=== PATIENT | female | born 1990 | race Caucasian/White ===

== ENCOUNTER 2019-05-15 12:45 | Emergency (ER) | payer SELFPAY ==
--- OUTSIDE RECORDS SUMMARY | 2019-05-15 12:48 | XMS REPORT ---
:1990 Author Organization [facility] Address [address] [place] [address] [address] [place] [address] Care Team Providers Name Role Phone Unavailable Unavailable Unavailable Problems This patient has no known problems. Allergies, Adverse Reactions, Alerts This patient has no known allergies or adverse reactions. Medications This patient has no known medications.
[2019-05-15] MEDS ORDERED: ACETAMINOPHEN 500 MG TAB ONE (14:23)
[2019-05-15] MEDS ORDERED: METOCLOPRAMIDE 10 MG/2mL INJ ONE (14:23)
[2019-05-15] MEDS ORDERED: DIPHENHYDRAMINE 50 MG/ML VIAL ONE (14:23)
[2019-05-15] MEDS ORDERED: NA CHLORIDE 0.9% 1,000 ML ONE (14:23)
[2019-05-15 14:40] LABS: Absolute Lymphocytes (CBC) 0.7 K/uL (0.7-4.9); Basophils % 0.2 % (0-1.3); Hematocrit 41.8 % (36.0-45.0); Lymphocytes % 9.2 % (15.3-44.8); MPV 8.1 fL (7.6-11.3); RBC Red Blood Cell Count 4.76 M/uL (3.86-4.86)
--- NOTE | 2019-05-15 15:01 | RAD REPORT ---
EXAM DESCRIPTION: CT - Head Brain Wo Cont - 05/15/2019 2:41 pm CLINICAL HISTORY: Headache COMPARISON: None. TECHNIQUE: Computed axial tomography of the head was obtained. IV contrast was not requested. All CT scans are performed using dose optimization technique as appropriate and may include automated exposure control or mA/KV adjustment according to patient size. FINDINGS: An intracranial bleed is not seen . The ventricles are normal in caliber. No extra-axial fluid collection is noted. Fluid within the sinuses/ mastoids is not seen. IMPRESSION: No acute intracranial abnormality is seen. If patient's symptoms persist MRI of the bra in would be recommended.
[2019-05-15 15:02] LABS: Blood Morphology Comment NOT SEEN (NOT SEEN); Platelet Estimate ADEQ; Urine White Blood Cell Casts OK
[2019-05-15 15:13] LABS: ALT/SGPT 21 U/L (12-78); AST/SGOT 16 U/L (15-37); Albumin 4.2 g/dL (3.4-5.0); Alkaline Phosphatase 46 U/L (45-117); BUN Blood Urea Nitrogen 14 mg/dL (7-18); Bicarbonate 25 mmol/L (21-32); Bilirubin Total 0.4 mg/dL (0.2-1.0); Glucose Level 104 mg/dL (74-106); Protein, Total 7.7 g/dL (6.4-8.2); Sodium Level 141 mmol/L (136-145)
--- NOTE | 2019-05-15 15:55 | ER ---
Nurse's Notes [facility] Name: Leda Le Age: 28 yrs Sex: Female : 1990 Arrival Date: 05/15/2019 Time: 12:46 Bed 24 Private MD: None, None Diagnosis: Headache;Urinary tract infection, site not specified Presentation: 05/15 13:34 Presenting complaint: Patient states: Frontal headache that began this morning, also ph reports AN/V and diffuse abdominal pain, hx of migraines. Transition of care: patient was not received from another setting of care. Onset of symptoms was May 15, 2019. Risk Assessment: Do you want to hurt yourself or someone else? Patient reports no desire to harm self or others. Initial Sepsis Screen: Does the patient meet any 2 criteria? No. Patient's initial sepsis screen is negative. Does the patient have a suspected source of infection? No. Patient's initial sepsis screen is negative. 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 - Social history:: Smoking status: Patient uses tobacco products, denies chronic smoking, but will smoke occasionally. - Ebola Screening: : No symptoms or risks identified at this time. Screenin:32 Abuse screen: Denies threats or abuse. Nutritional screening: No deficits noted. sr5 Tuberculosis screening: No symptoms or risk factors identified. Fall Risk No fall in past 12 months (0 pts). No secondary diagnosis (0 pts). IV access (20 points). Ambulatory Aid- None/Bed Rest/Nurse Assist (0 pts). Gait- Normal/Bed Rest/Wheelchair (0 pts) Mental Status- Oriented to own ability (0 pts). Total Machado Fall Scale indicates No Risk (0-24 pts). Assessment: 16:18 Reassessment: Upon discharge pt continues to be AA\\T\\Ox4, equal unlabored resp, skin sr5 warm/dry/nc, IV site dc'd intact, bandage applied. Continues improved frontal headache, 6/10 but denies need for further pain medication. Steady gait out of ER . Vital Signs: 13:35 BP 123 / 90; Pulse 91; Resp 18; Temp 99.7(O); Pulse Ox 97% on R/A; Weight 56.25 kg; ph Height 5 ft. 3 in. (160.02 cm); 15:32 BP 118 / 73; Pulse 88; Resp 14; Temp 99.1(O); Pulse Ox 99% on R/A; Pain 6/10; sr5 16:10 BP 114 / 80; Pulse 84; Resp 16; Temp 99.1; Pulse Ox 100% on R/A; Pain 6/10; sr5 13:35 Body Mass Index 21.97 (56.25 kg, 160.02 cm) ph 15:32 Reports pain "better", continues to have frontal headache, sensitive to light sr5 ED Course: 12:46 Patient arrived in ED. mr 12:47 None, None is Private Physician. mr 13:35 Triage completed. ph 13:36 Arm band placed on Patient placed in an exam room. ph 13:43 Jonathan Boston PA is PHCP. jmm 13:49 Kashmir Bronson, RN is Primary Nurse. sr5 14:34 Initial lab(s) drawn, by me, sent to lab. Flu and/or RSV swab sent to lab. Strep swab lt1 sent to lab. Inserted saline lock: 22 gauge in right antecubital area, using aseptic technique. 14:35 Strep Sent. lt1 14:35 Flu Sent. lt1 14:41 CT completed. Patient tolerated procedure well. Patient moved back from CT. mw3 14:41 CT Head Brain wo Cont In Process Unspecified. EDMS 15:32 Patient has correct armband on for positive identification. Fall risk band placed. sr5 Placed in gown. Bed in low position. Call light in reach. Side rails up X 1. Pulse ox on. NIBP on. Warm blanket given. 15:56 Jose Brandt MD is Attending Physician. jmm 16:10 No provider procedures requiring assistance completed. IV discontinued, intact, sr5 bleeding controlled, No redness/swelling at site. Administered Medications: 14:30 Drug: Reglan 10 mg Route: IVP; Site: right antecubital; sr5 16:23 Follow up: Response: Pain is decreased sr5 14:30 Drug: diphenhydrAMINE 12.5 mg Route: IVP; Site: right antecubital; sr5 16:22 Follow up: Response: Pain is decreased sr5 14:31 Drug: NS 0.9% 1000 ml Route: IV; Rate: 1 bolus; Site: right antecubital; sr5 16:23 Follow up: IV Status: Completed infusion; IV Intake: 1000ml sr5 14:31 Drug: Tylenol 1000 mg Route: PO; sr5 16:23 Follow up: Response: Pain is decreased sr5 Intake: 16:23 IV: 1000ml; Total: 1000ml. sr5 Outcome: 15:55 Discharge ordered by . anai 16:10 Discharged to home ambulatory. sr5 16:10 Condition: good 16:10 Discharge instructions given to patient, Instructed on discharge instructions, follow up and referral plans. medication usage, Demonstrated understanding of instructions, follow-up care, medications, Prescriptions given X 1. 16:18 Patient left the ED. sr5 Signatures: Dispatcher [employer] EDMS Jonathan Boston PA PA jmm Rivera, Maureen mr Yareli Concepcion RN RN Kashmir Molina RN RN sr5 Rosita Kerr 3 Cayla Sharp [facility]
--- NOTE | 2019-05-15 15:56 | EDPHYS ---
Physician Documentation [facility] Name: Leda Le Age: 28 yrs Sex: Female : 1990 Arrival Date: 05/15/2019 Time: 12:46 Bed 24 Private MD: None, None ED Physician Jose Brandt HPI: 05/15 14:14 This 28 yrs old Female presents to ER via Ambulatory with complaints of jmm Headache, Vomiting. 14:14 The patient complains of pain to the forehead. Onset: The symptoms/episode jmm began/occurred gradually, 8 hour(s) ago. Associated signs and symptoms: Pertinent positives: vomiting, headache. This is a 28 year old female with a history of migraines that presents to the ED with complaints of headache, vomiting which developed this morning. Patient also complains of fever, chills and sore throat. . 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 - Social history:: Smoking status: Patient uses tobacco products, denies chronic smoking, but will smoke occasionally. - Ebola Screening: : No symptoms or risks identified at this time. ROS: 14:14 Cardiovascular: Negative for chest pain, palpitations, and edema. jmm 14:14 Respiratory: Negative for shortness of breath, cough, wheezing, and pleuritic chest pain. 14:14 Constitutional: Positive for body aches, fever. 14:14 ENT: Positive for sore throat. 14:14 Respiratory: 14:14 Abdomen/GI: Positive for vomiting. 14:14 All other systems are negative. Exam: 14:14 Constitutional: This is a well developed, well nourished patient who is awake, alert, jmm and in no acute distress. Head/Face: atraumatic. Eyes: EOMI, no conjunctival erythema appreciated ENT: Moist Mucus Membranes 14:14 Neck: Trachea midline, Supple Chest/axilla: Normal chest wall appearance and motion. Cardiovascular: Regular rate and rhythm. No edema appreciated Respiratory: Normal respirations, no respiratory distress appreciated 14:14 ENT: Posterior pharynx: erythema, that is mild. 14:14 Abdomen/GI: Inspection: abdomen appears normal, Bowel sounds: normal, Palpation: abdomen is soft and non-tender, in all quadrants. 14:14 Back: ROM is normal. 14:14 Musculoskeletal/extremity: ROM: intact in all extremities. 14:14 Skin: Appearance: Color: normal in color. 14:14 Neuro: Orientation: is normal, Mentation: is normal, Memory: is normal. 14:14 Psych: Behavior/mood is pleasant, cooperative. Vital Signs: 13:35 BP 123 / 90; Pulse 91; Resp 18; Temp 99.7(O); Pulse Ox 97% on R/A; Weight 56.25 kg; ph Height 5 ft. 3 in. (160.02 cm); 15:32 BP 118 / 73; Pulse 88; Resp 14; Temp 99.1(O); Pulse Ox 99% on R/A; Pain 6/10; sr5 16:10 BP 114 / 80; Pulse 84; Resp 16; Temp 99.1; Pulse Ox 100% on R/A; Pain 6/10; sr5 13:35 Body Mass Index 21.97 (56.25 kg, 160.02 cm) ph 15:32 Reports pain "better", continues to have frontal headache, sensitive to light sr5 MDM: 14:10 Patient medically screened. [facility] 15:52 Data reviewed: vital signs, nurses notes. Counseling: I had a detailed discussion with [facility] the patient and/or guardian regarding: the historical points, exam findings, and any diagnostic results supporting the discharge/admit diagnosis, lab results, radiology results, the need for outpatient follow up, to return to the emergency department if symptoms worsen or persist or if there are any questions or concerns that arise at home. ED course: Pain relieved in the ED. Patient's neck is supple. I do not suspect meningitis. patient is advised to follow up with pcp and otherwise given strict return precautions. patient understood and agrees with the plan of care. . 05/15 14:10 Order name: Flu; Complete Time: 15:05 [facility] 05/15 14:10 Order name: Strep; Complete Time: 14:49 [facility] 05/15 14:10 Order name: CBC with Diff; Complete Time: 15:05 [facility] 05/15 14:10 Order name: CMP; Complete Time: 15:15 [facility] 05/15 14:42 Order name: CBC Smear Scan; Complete Time: 15:05 [facility] 05/15 14:49 Order name: Throat Culture [facility] 05/15 14:12 Order name: CT Head Brain wo Cont; Complete Time: 15:05 [facility] 05/15 15:42 Order name: Urine Culture [facility] 05/15 15:50 Order name: Urine Dipstick--Ancillary (enter results) 05/15 15:50 Order name: Urine --Ancillary (enter results) 05/15 14:10 Order name: Saline Lock; Complete Time: 14:19 [facility] 05/15 15:16 Order name: Urine Dipstick-Ancillary (obtain specimen); Complete Time: 15:29 [facility] Administered Medications: 14:30 Drug: Reglan 10 mg Route: IVP; Site: right antecubital; sr5 16:23 Follow up: Response: Pain is decreased sr5 14:30 Drug: diphenhydrAMINE 12.5 mg Route: IVP; Site: right antecubital; sr5 16:22 Follow up: Response: Pain is decreased sr5 14:31 Drug: NS 0.9% 1000 ml Route: IV; Rate: 1 bolus; Site: right antecubital; sr5 16:23 Follow up: IV Status: Completed infusion; IV Intake: 1000ml sr5 14:31 Drug: Tylenol 1000 mg Route: PO; sr5 16:23 Follow up: Response: Pain is decreased sr5 Disposition: 05/16 07:21 Co-signature as Attending Physician, Jose Brandt MD I agree with the assessment and kdr plan of care. Disposition: 05/15/19 15:55 Discharged to Home. Impression: Headache, Urinary tract infection, site not specified. - Condition is Stable. - Discharge Instructions: General Headache Without Cause, Urinary Tract Infection, Adult. - Prescriptions for Cephalexin 250 mg Oral Capsule - take 1 capsule by ORAL route every 12 hours for 10 days; 20 capsule. - Medication Reconciliation Form, Thank You Letter, Antibiotic Education, Prescription Opioid Use form. - Follow up: Private Physician; When: 2 - 3 days; Reason: Recheck today's complaints, Continuance of care, Re-evaluation by your physician. Signatures: Dispatcher [employer] Joes Ogden MD MD kdr Mickail, Joel, PA PA jmm Hall, Patricia RN RN Kashmir Bronson RN RN sr5 Corrections: (The following items were deleted from the chart) 05/15 16:18 15:55 05/15/2019 15:55 Discharged to Home. Impression: Headache; Urinary tract sr5 infection, site not specified. Condition is Stable. Forms are Medication Reconciliation Form, Thank You Letter, Antibiotic Education, Prescription Opioid Use. Follow up: Private Physician; When: 2 - 3 days; Reason: Recheck today's complaints, Continuance of care, Re-evaluation by your physician. anai
[2019-05-15 17:49] LABS: Urine Blood 2+ (NEG); Urine Glucose NEGATIVE (NEG); Urine Protein 2+ (NEG); Urine Specific Gravity 1.015 (1.005-1.030)
[2019-05-15 18:43] VITALS: BP 118/73; TEMP 99.1; O2SAT 99
== END 2019-05-15 16:18 | disposition home or self-care (01) ==
LOC: ER 12:45
DX: N39.0 Urinary tract infection, site not specified (principal); Z72.0 Tobacco use
CPT/HCPCS: 36415; 70450; 80053; 81003; 81025; 85025; 87070; 87077; 87081; 87086; 87088; 87186; 87804; 96361; 96374; 96375; 99284; J1200; J2765; J7030

== ENCOUNTER 2024-09-12 22:24 | Emergency (ER) | payer BC, OTHER ==
--- OUTSIDE RECORDS SUMMARY | 2024-09-12 22:30 | XMS REPORT | Continuity of Care Document ---
Author Name Unknown Address [address] [facility] [place] [address] Organization [facility] [place] Address [address] [facility] [place] [address] Care Team Providers Care Network Security Officer Name Role Phone SUPRIYA MALDONADO Primary Care Physician UnaDONNA Tello Attending Clinician Unavailable DONNA IRVIN Attending Clinician Unavailable SANFORD PRETTY Attending Clinician Unavailable Lab, Ang - Db Attending Clinician Unavailable Lucita Cortez MD Attending Clinician + [phone] LUCITA CORTEZ Attending Clinician LUCITA Johnson Attending Clinician ARIEL Lim Attending Clinician Unavailable RICARDO HAMMER Attending Clinician Unavailmart levine Nurse, [facility] Attending Clinician Unavailable Jeevan Anderson MD Attending Clinician [phone] JEEVAN ANDERSON Attending Clinician Unavailable Ricardo Hammer MD Attending Clinician + [phone] Leonardo Alvarado MD Attending Clinician [phone] Sahara Nickerson MD Attending Clinicia n [address] [place] [address] Attending Clinician UnavailTammy Ley MD Attending Clinician [phone] STEWART CARROLL Attending Clinician Unavailable Deya Peterson Attending Clinician UnavailStewart Carter MD Attending Clinician [phone], [facility] Attending Clinician Unavailable Tara Ricardo CNM Attending Clinician [phone] Pob, [facility] Main Attending Clinician Unavailmariana gibbs Doctor Unassigned, [place] Attending Clinician U navailable ROJELIO DENNIS Attending Clinician Unavailable Rojelio Dennis MD Attending Clinician [phone] MARIO LOMAX Attending Clinician Unavailable Mario Quiroz Attending Clinician [phone] Lab, Ang - Db Attending Clinician Unavailable JUVE OROZCO Attending Clinician Unavail able Provider, ArturoRmchp Temp Attending Clinician Susana vailable TARA RICARDO Attending Clinician UnavailWilliam House Attending Clinician [phone] WILLIAM GONZÁLES Attending Clinician UnavailJuve Jolley Attending Clinician + Lab, [facility] Pob I Attending Clinician Unavailab Ranjana Holliday Attending Clinician + ARNJANA LANG Attending Clinician Unava ilable [facility], [facility] Attending Clinician Unava ilable Chasity Cota Attending Clinician [phone] Pob[facility], [facility] Attending Clinician Unav ailable Katerin Fofana Attending Clinician [phone] Cee Miller Attending Clinician + [phone] RICARDO HAMMER Admitting Clinician UnavailRicardo Rojo MD Admitting Clinician + [phone] ROJELIO DENNIS Admitting Clinician Unavailable MARIO LOMAX Admitting Clinician Unavailable Payers Payer Name Policy Type Policy Number Effective Date Expirati on Date Source [facility] HANY BOLANOS [id number] 2023 00:00:00 Problems Condition Name Condition Details Condition Category Status Onset Date Resolution Date Last Treatment Date Treating Clinician Comments Source (spontaneo us vaginal delivery) (spontaneo us vaginal delivery) Disease Resolve d 2024-0 3-22 00:00: 00 2023-09-17 00:00:00 2023-09-17 13:36:00 [facility] 14 weeks gestation of 14 weeks gestation of Disease Resolve d 2023-0 2-14 00:00: 00 2023-09-17 00:00:00 2023-09-17 13:35:55 [facility] Previous section complicati ng Previous section complicati ng Disease Resolve d 2023-0 2-14 00:00: 00 2023-09-17 00:00:00 2023-09-17 13:35:59 [facility] Chronic hypertensi on affecting Chronic hypertensi on affecting Disease Resolve d 2023- 2-14 00:00: 00 2023-09-17 00:00:00 2023-09-17 13:35:58 [facility] 19 weeks gestation of 19 weeks gestation of Disease Resolve d 3-20 00:00: 00 2023-08-29 00:00:00 2023-08-29 07:57:13 [facility] High-risk in second trimester High-risk in second trimester Disease Resolve d 2023- 2-14 00:00: 00 2023-08-29 00:00:00 2023-08-29 07:57:05 [facility] Elevated blood pressure reading without diagnosis of hypertensi on Elevated blood pressure reading without diagnosis of hypertensi on Disease Resolve d 2020-06 2- 00:00: 00 2023-07-23 00:00:00 2023-07-23 14:01:29 [facility] Well woman exam Well woman exam Disease Resolve d 9-14 00:00: 00 2023-07-23 00:00:00 2023-07-23 14:01:32 Overview: Formattin g of this note might be different from the original. 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 Tobacco use disorder Tobacco use disorder Disease Resolve d 2016-06 00:00: 00 2021-06-05 00:00:00 2021-06-05 08:46:23 [facility] Depot contracept ion Depot contracept ion Disease Resolve d 02-20 00:00: 00 2021-06-05 00:00:00 2021-06-05 08:50:39 [facility] UTI symptoms UTI symptoms Disease Resolve d 11-13 00:00: 00 2017-04-30 00:00:00 2017-04-30 09:00:22 [facility] Anemia Anemia Disease Resolve d 02-20 00:00: 00 2017-04-30 00:00:00 2021-12-23 00:37:37 [facility] History of anemia History of anemia Disease Resolve d 02-20 00:00: 00 2017-04-30 00:00:00 2017-04-30 09:01:08 [facility] Need for Tdap vaccinatio n Need for Tdap vaccinatio n Disease Resolve d 02-20 00:00: 00 2016-02-14 00:00:00 2016-02-14 14:29:51 [facility] Allergies, Adverse Reactions, Alerts Allergy Name Allergy Type Status Severity Reaction(s) Onset Date Inactive Date Treating Clinician Comments Source NO KNOWN ALLERGIE S Drug Class Active [facility] Social History Social Habit Start Date Stop Date Quantity Comments Source ASSERTION 2023-04-29 00:00:00 [facility] History SDOH Alcohol Frequency [facility] History SDOH Alcohol Std Drinks [facility] History SDOH Alcohol Binge [facility] Sexual orientation [facility] Alcoholic beverage intake 2024-03-18 00:00:00 2024-03-18 00:00:00 Current drinker of alcohol (finding) [facility] Cigarettes smoked current (pack per day) - Reported 2024-03-18 00:00:00 2024-03-18 00:00:00 [facility] Cigarette pack-years 2024-03-18 00:00:00 2024-03-18 00:00:00 [facility] Tobacco use and exposure 2024-03-18 00:00:00 2024-03-18 00:00:00 Smokeless tobacco non-user [facility] Alcohol intake 2023-09-17 00:00:00 2023-09-17 00:00:00 Current drinker of alcohol (finding) [facility] Exposure to SARS-CoV-2 (event) 2022-08-25 00:00:00 2022-09-04 10:59:00 Not sure [facility] History of Social function 2022-07-12 00:00:00 2022-07-12 00:00:00 [facility] History of tobacco use 2008-09-01 00:00:00 2021-12-07 00:00:00 Cigarette Smoker [facility] Alcohol Comment 2019-11-11 00:00:00 2019-11-11 00:00:00 socially [facility] Sex assigned at 1990 00:00:00 1990 00:00:00 [facility] Smoking Status Start Date Stop Date Source Ex-smoker 2024-03-18 00:00:00 2024-03-18 00:00:00 [facility] Medications Ordered Medication Name Filled Medication Name Start Date Stop Date Current Medication? Ordering Clinician Indication Dosage Frequency Signature (SIG) Comments Components Source cephALEXin 500 mg capsule 09-18 00:00: 00 09-26 04:59 :00 No [id number] 500mg Take 1 capsule by mouth in the morning and 1 capsule in the evening. Do all this for [address] [facility] PNV no.95/siena us fum/folic ac ( ORAL) 09-16 13:38: 37 09-16 00:00 :00 No Take by mouth. [facility] norethindro ne 0.35 mg tablet 09-16 00:00: 00 03-18 00:00 :00 No [id number] 1{tbl} Take 1 tablet by mouth in the morning. [facility] amLODIPine 5 mg tablet 09-16 00:00: 00 03-18 00:00 :00 No [id number] 5mg Take 1 tablet by mouth in the morning. [facility] amLODIPine 5 mg tablet 09-04 00:00: 00 09-16 00:00 :00 No [id number] 5mg Take 1 tablet by mouth in the morning. [facility] PNV no.95/siena fum/folic ac ( ORAL) 08-28 13:01: 31 Yes Take by mouth. [facility] ibuprofen (IBU) tablet 600 mg 08-28 00:36: 21 Yes 600mg 600 mg, Oral, Q6HPRN, Starting on Fri08/28/23 at 193, Until Discontinu ed, Routine, Pain (scale 4-6) [facility] acetaminoph en (TYLENOL) tablet 650 mg 08-28 00:36: 21 Yes 650mg 650 mg, Oral, Q6HPRN, Starting on Fri08/28/23 at 193, Until Discontinu ed, Routine, Pain (scale 1-3) [facility] diphenhydrA MINE (BENADRYL) tablet 25 mg 08-28 00:36: 21 Yes 25mg 25 mg, Oral, Q6HPRN, Starting on Fri08/28/23 at 193, Until Discontinu ed, Routine, Sleep, Itching [facility] ondansetron (ZOFRAN (PF)) injection 4 mg 08-28 00:36: 21 Yes 4mg 4 mg, Slow IV Push, Q8HPRN, Starting on Fri08/28/23 at 193, Until Discontinu ed, Routine, Nausea and Vomiting (N/V) [facility] simethicone (GAS RELIEF (SIMETHICON E)) chewable tablet 160 mg 08-28 00:36: 21 Yes 160mg 160 mg, Oral, PC+HSPRN, Starting on Fri08/28/23 at 193, Until Discontinu ed, Routine, Gas [facility] docusate (COLACE) capsule 200 mg 08-28 00:36: 21 Yes 200mg 200 mg, Oral, QDAILYPRN, Starting on Fri08/28/23 at 193, Until Discontinu ed, Routine, Constipati on [facility] magnesium hydroxide (MILK OF MAGNESIA) 400 mg/5 mL suspension 30 mL 08-28 00:36: 21 Yes 30mL 30 mL, Oral, QDAILYPRN, Starting on Ava 08/28/23 at 1936, Until Discontinu ed, Routine, Constipati on [facility] benzocaine- menthol (DERMOPLAST ) 20-0.5 % topical spray 08-28 00:36: 21 Yes Topical, PRN, Starting on Fri08/28/23 at 1936, Until Discontinu ed, Routine, Perineum discomfort [facility] [id number] fum-folic 27 mg iron- 1 mg folic tablet 08-28 00:00: 00 09-16 00:00 :00 No [id number] 1{tbl} Take 1 tablet by mouth in the morning. [facility] docusate 100 mg capsule 08-28 00:00: 00 09-16 00:00 :00 No [id number] 200mg Take 2 capsules by mouth once daily as needed for Constipati on. [facility] ferrous sulfate 325 mg (65 mg iron) tablet 08-28 00:00: 00 09-16 00:00 :00 No [id number] 325mg Take 1 tablet by mouth in the morning. [facility] ibuprofen 600 mg tablet 08-28 00:00: 00 09-16 00:00 :00 No [id number] 600mg Take 1 tablet by mouth every 6 (six) hours as needed (Pain). Take with food or milk. [facility] ketorolac (TORADOL) injection 30 mg 08-27 21:51: 31 08-30 04:59 :00 No 30mg 30 mg, Slow IV Push, PRN, 1 dose, Starting on Ava 08/28/23 at 1651, Until 08/30/23 at 2359, Routine, Pain (scale 7-10) [facility] naloxone (NARCAN) injection 0.4 mg 08-27 21:51: 31 08-29 21:50 :31 No .4mg 0.4 mg, Slow IV Push, PRN - SEE INSTRUCTIO NS, Starting on Ava 08/28/23 at 1651, Until 08/30/23 at 1650, Routine, Sedation/R espiratory Depression , [facility] diphenhydrA MINE (BENADRYL) injection 25 mg 08-27 21:51: 31 08-28 23:55 :37 No 25mg 25 mg, Slow IV Push, Q4HPRN, Starting on Ava 08/28/23 at 1651, Until 08/29/23 at 1855, Routine, Itching [facility] doxycycline (VIBRAMYCIN ) 200 mg in NaCl 0.9% (NS) piggyback 08-27 21:45: 00 08-27 23:17 :00 No 200mg 200 mg, IV Piggyback, ONCE, 1 dose, On Ava 08/28/23 at 1645, Administer over 2 Hours, 250 mL
Reas on for Anti-Infec tive: Empiric Non-Surgic al Prophylaxi s
Durat ion of therapy: Once (ED) [facility] miSOPROStoL (CYTOTEC) tablet 200 mcg 08-27 19:45: 00 08-27 18:53 :00 No 200ug 200 mcg, Oral, ONCE, 1 dose, On Ava 08/28/23 at 1445, Routine [facility] PNV no.95/siena us fum/folic ac ( ORAL) 08-27 13:43: 38 Yes Take by mouth. [facility] oxytocin (PITOCIN) 200 Units in lactated ringers 500 mL IV Solution 08-27 11:30: 00 08-27 13:45 :00 No 200U 200 Units, at 167 mL/hr, IV Piggyback, ONCE, 1 dose, On Ava 08/28/23 at 0630, Routine [facility] acetaminoph en (TYLENOL) tablet 1,000 mg 08-27 09:30: 00 08-27 08:23 :00 No 1000mg 1,000 mg, Oral, ONCE, 1 dose, On Ava 08/28/23 at 0430, Routine [facility] oxytocin (PITOCIN) 150 Units in lactated ringers 500 mL IV Solution 08-27 07:15: 00 08-27 11:18 :00 No 150U 150 Units, at 167 mL/hr, IV Piggyback, ONCE, 1 dose, On Fri08/28/23 at 0215, Routine [facility] ondansetron (ZOFRAN (PF)) injection 4 mg 08-27 02:15: 00 08-27 01:29 :00 No 4mg 4 mg, Slow IV Push, ONCE, On Fri08/27/23 at 2115, For 1 dose
Do ses of ondansetro n 16 mg and above need to be administer ed via IV piggyback. For Dose >=24mg ECG monitoring is advisable.
[facility] oxytocin (PITOCIN) 100 Units in lactated ringers 500 mL IV Solution 08-27 01:26: 03 08-27 06:37 :00 No 100U 100 Units, at 167 mL/hr, IV Piggyback, SEE-INSTRU CTIONS, 1 dose, Starting on Fri08/27/23 at 2026, Until Discontinu ed, Routine [facility] lactated ringers IV infusion 500 mL 08-26 19:30: 00 08-26 19:04 :29 No 500mL at 999 mL/hr, 500 mL, IV Infusion, ONCE, 1 dose, On Fri08/27/23 at 1430, Routine [facility] ropivacaine 0.2 % (NAROPIN (PF)) epidural infusion 08-26 18:57: 00 Yes Epidural, CONTINUOUS PRN, Starting on Fri08/27/23 at 1357, Until Discontinu ed, Routine, Intra-op [facility] lidocaine-e pinephrine (XYLOCAINE W/EPINEPHRI NE) 1.5 %-1:200,000 injection 08-26 18:50: 00 Yes Epidural, ONCE INTRA PROCEDURE, Starting on Fri08/27/23 at 1350, Until Discontinu ed, Routine, Intra-op [facility] amLODIPine (NORVASC) tablet 5 mg 08-26 18:45: 00 Yes 5mg 5 mg, Oral, DAILY, First dose (after last modificati on) on Fri08/27/23 at 1345, Until Discontinu ed, Routine [facility] sodium citrate-cit mirlande acid (BICITRA) 500-334 mg/5 mL solution 30 mL 08-26 18:30: 44 08-26 18:34 :00 No 30mL 30 mL, Oral, PRE-PROCED URE ONCE, 1 dose, Starting on Fri08/27/23 at 1330, Until Fri08/27/23 at 1334, Routine, Surgery/Pr ocedure [facility] oxytocin (PITOCIN) 50 Units in lactated ringers 500 mL IV Solution 08-26 18:30: 09 08-27 00:11 :00 No 50U 50 Units, at 167 mL/hr, IV Piggyback, SEE-INSTRU CTIONS, 1 dose, Starting on Fri08/27/23 at 1330, Until Discontinu ed, Routine [facility] sodium citrate-cit mirlande acid (BICITRA) 500-334 mg/5 mL solution 30 mL 08-26 15:54: 40 08-27 21:00 :00 No 30mL 30 mL, Oral, PRE-PROCED URE ONCE, 1 dose, Starting on Fri08/27/23 at 1054, Until Discontinu ed, Routine, Surgery/Pr ocedure [facility] D5W-LR IV infusion 1,000 mL 08-26 15:54: 39 08-28 00:36 :30 No 1000mL at 1-125 mL/hr, IV Infusion, TITRATE, Starting on Fri08/27/23 at 1054, Until Ava 08/28/23 at 1936, Routine [facility] PNV no.95/siena us fum/folic ac ( ORAL) 08-26 10:11: 45 Yes Take by mouth. [facility] amLODIPine 5 mg tablet 2-27 00:00: 00 09-04 00:00 :00 No [id number] 5mg Take 1 tablet by mouth in the morning. [facility] metroNIDAZO LE 500 mg tablet 2-15 00:00: 00 08-28 00:00 :00 No [id number] 500mg Take 1 tablet by mouth every 12 (twelve) hours. [facility] PNV no.95/siena us fum/folic ac ( ORAL) 2-14 14:12: 58 Yes Take by mouth. [facility] Blood Pressure Monitor Kit 07-23 00:00: 00 03-18 00:00 :00 No [id number] Use as directed [facility] miSOPROStoL (CYTOTEC) tablet 800 mcg 09-04 21:15: 00 09-04 20:30 :[id number] [facility] ESTARYLLA 0.25-35 mg-mcg per tablet 08-31 00:00: 00 07-23 00:00 :00 No TAKE 1 TABLET BY MOUTH EVERY DAY NO PLACEBO [facility] miSOPROStoL (CYTOTEC) tablet 800 mcg 08-27 15:15: 00 08-27 14:57 :[id number] [facility] neomycin-po lymyxin-hyd rocortisone 3.5-10,000- 1 mg/mL-unit/ mL-% otic susp 3-11 00:00: 00 08-25 04:59 :00 No [id number] 33259 4[drp] Place 4 Drops in right ear 4 (four) times daily for [address] [facility] vit calc,iron,f olic ( VITAMIN ORAL) 3-08 11:48: 36 07-12 00:00 :00 No Take by mouth. [facility] calcium/mul tivitamin with iron (CALCIUM-MU LTIVITAMIN W-IRON ORAL) 07-12 10:09: 27 07-12 00:00 :00 No Take by mouth. [facility] vit calc,iron,f olic ( VITAMIN ORAL) 07-12 10:09: 24 07-12 00:00 :00 No Take by mouth. [facility] norethindro ne 0.35 mg tablet 07-12 00:00: 00 08-14 00:00 :00 No [id number] 1{tbl} Take 1 tablet by mouth in the morning. [facility] ESTARYLLA 0.25-35 mg-mcg per tablet 06-23 00:00: 00 07-12 00:00 :00 No TAKE 1 TABLET BY MOUTH EVERY DAY NO PLACEBO [facility] vit calc,iron,f olic ( VITAMIN ORAL) 2020-06 09:13: 26 Yes Take by mouth. [facility] norethindro ne 0.35 mg tablet 2020-06 00:00: 00 07-12 00:00 :00 No [id number] 1{tbl} Take 1 tablet by mouth daily. [facility] Nitrofurant oin&Nit. Macrocryst (MACROBID) 100 mg capsule 2020-06 00:00: 00 06-13 05:59 :00 No [id number] 100mg Take 1 capsule by mouth 2 (two) times daily for [address] [facility] VIENVA 0.1-20 mg-mcg per tablet 2020-06 00:00: 00 06-05 00:00 :00 No [id number] TAKE 1 TABLET BY MOUTH DAILY [facility] GREGORIO tablet 2020-06 0-17 00:00: 00 06-05 00:00 :[address] [facility] calcium/mul tivitamin with iron (CALCIUM-MU LTIVITAMIN W-IRON ORAL) 6-04 10:52: 37 Yes Take by mouth. [facility] medroxyPROG ESTERone (DEPO-PROVE RA) injection 150 mg 09-01 16:30: 00 01-11 19:54 :03 No [id number] 150mg [facility] medroxyPROG ESTERone (DEPO-PROVE RA) injection 150 mg 2017-0620 21:45: 00 01-11 19:54 :03 No [id number] 150mg [facility] Immunizations Ordered Immunization Name Filled Immunization Name Date Status Comments Source Rho (d) Immune Globulin 2023-08-29 00:00:00 Completed [facility] Rho (d) Immune Globulin 2023-08-28 00:00:00 Completed [facility] Rho (d) Immune Globulin 2022-09-03 00:00:00 Completed [facility] Rho (d) Immune Globulin 2022-09-03 00:00:00 Completed [facility] Rho (d) Immune Globulin 2022-09-03 00:00:00 Completed [facility] Rho (d) Immune Globulin 2022-09-03 00:00:00 Completed [facility] Rho (d) Immune Globulin 2022-09-03 00:00:00 Completed [facility] Rho (d) Immune Globulin 2022-09-03 00:00:00 Completed [facility] HPV9 2019-11-11 00:00:00 Completed [facility] HPV9 2019-11-11 00:00:00 Completed [facility] HPV9 2019-11-11 00:00:00 Completed [facility] HPV9 2019-11-11 00:00:00 Completed [facility] HPV9 2019-11-11 00:00:00 Completed [facility] HPV9 2019-11-11 00:00:00 Completed [facility] HPV9 2019-11-11 00:00:00 Completed [facility] HPV9 2019-11-11 00:00:00 Completed [facility] HPV9 2019-11-11 00:00:00 Completed [facility] HPV9 2019-11-11 00:00:00 Completed [facility] HPV9 2019-11-11 00:00:00 Completed [facility] HPV9 2019-11-11 00:00:00 Completed [facility] HPV9 2019-11-11 00:00:00 Completed [facility] HPV9 2019-11-11 00:00:00 Completed [facility] HPV9 2019-11-11 00:00:00 Completed [facility] HPV9 2019-11-11 00:00:00 Completed [facility] HPV9 2019-11-11 00:00:00 Completed [facility] HPV9 2019-11-11 00:00:00 Completed [facility] HPV9 2018-09-01 00:00:00 Completed [facility] HPV9 2018-09-01 00:00:00 Completed [facility] HPV9 2018-09-01 00:00:00 Completed [facility] HPV9 2018-09-01 00:00:00 Completed [facility] HPV9 2018-09-01 00:00:00 Completed [facility] HPV9 2018-09-01 00:00:00 Completed [facility] HPV9 2018-09-01 00:00:00 Completed [facility] HPV9 2018-09-01 00:00:00 Completed [facility] HPV9 2018-09-01 00:00:00 Completed [facility] HPV9 2018-09-01 00:00:00 Completed [facility] HPV9 2018-09-01 00:00:00 Completed [facility] HPV9 2018-09-01 00:00:00 Completed [facility] HPV9 2018-09-01 00:00:00 Completed [facility] HPV9 2018-09-01 00:00:00 Completed [facility] HPV9 2018-09-01 00:00:00 Completed [facility] HPV9 2018-09-01 00:00:00 Completed [facility] HPV9 2018-09-01 00:00:00 Completed [facility] HPV9 2018-09-01 00:00:00 Completed [facility] HPV9 2016-05-14 00:00:00 Completed [facility] HPV9 2016-05-14 00:00:00 Completed [facility] HPV9 2016-05-14 00:00:00 Completed [facility] HPV9 2016-05-14 00:00:00 Completed [facility] HPV9 2016-05-14 00:00:00 Completed [facility] HPV9 2016-05-14 00:00:00 Completed [facility] HPV9 2016-05-14 00:00:00 Completed [facility] HPV9 2016-05-14 00:00:00 Completed [facility] HPV9 2016-05-14 00:00:00 Completed [facility] HPV9 2016-05-14 00:00:00 Completed [facility] HPV9 2016-05-14 00:00:00 Completed [facility] HPV9 2016-05-14 00:00:00 Completed [facility] HPV9 2016-05-14 00:00:00 Completed [facility] HPV9 2016-05-14 00:00:00 Completed [facility] HPV9 2016-05-14 00:00:00 Completed [facility] HPV9 2016-05-14 00:00:00 Completed [facility] HPV9 2016-05-14 00:00:00 Completed [facility] HPV9 2016-05-14 00:00:00 Completed [facility] HPV9 Unknown Completed [facility] Rho (d) Immune Globulin Unknown Completed [facility] HPV9 Unknown Completed [facility] Rho (d) Immune Globulin Unknown Completed [facility] HPV9 Unknown Completed [facility] Rho (d) Immune Globulin Unknown Completed [facility] HPV9 Unknown Completed [facility] Rho (d) Immune Globulin Unknown Completed [facility] HPV9 Unknown Completed [facility] Rho (d) Immune Globulin Unknown Completed [facility] HPV9 Unknown Completed [facility] Rho (d) Immune Globulin Unknown [facility] [facility] HPV9 Unknown Completed [facility] Rho (d) Immune Globulin Unknown Completed [facility] Rho (d) Immune Globulin Unknown Completed [facility] HPV9 Unknown Completed [facility] HPV9 Unknown Completed [facility] Rho (d) Immune Globulin Unknown Completed [facility] HPV9 Unknown Completed [facility] Rho (d) Immune Globulin Unknown Completed [facility] HPV9 Unknown Completed [facility] Rho (d) Immune Globulin Unknown Completed [facility] HPV9 Unknown Completed [facility] Rho (d) Immune Globulin Unknown Completed [facility] HPV9 Unknown Completed [facility] Rho (d) Immune Globulin Unknown Completed [facility] HPV9 Unknown Completed [facility] Rho (d) Immune Globulin Unknown Completed [facility] HPV9 Unknown Completed [facility] Rho (d) Immune Globulin Unknown Completed [facility] HPV9 Unknown Completed [facility] Rho (d) Immune Globulin Unknown Completed [facility] HPV9 Unknown Completed [facility] HPV9 Unknown Completed [facility] Rho (d) Immune Globulin Unknown Completed [facility] HPV9 Unknown Completed [facility] Rho (d) Immune Globulin Unknown Completed [facility] HPV9 Unknown Completed [facility] Rho (d) Immune Globulin Unknown Completed [facility] HPV9 Unknown Completed [facility] Rho (d) Immune Globulin Unknown Completed [facility] HPV9 Unknown Completed [facility] Rho (d) Immune Globulin Unknown Completed [facility] HPV9 Unknown Completed [facility] Rho (d) Immune Globulin Unknown Completed [facility] Vital Signs Vital Name Observation Time Observation Value Comments S ource Systolic blood pressure 2024-03-18 19:11:00 134 mm[Hg] [facility] Diastolic blood pressure 2024-03-18 19:11:00 94 mm[Hg] [facility] Heart rate 2024-03-18 19:09:00 93 /min [facility] Respiratory rate 2024-03-18 19:09:00 18 /min [facility] Body height 2024-03-18 19:09:00 157.5 cm [facility] acute hospital Body weight 2024-03-18 19:09:00 58.06 kg [facility] acute hospital BMI 2024-03-18 19:09:00 23.41 kg/m2 [facility] acute hospital Systolic blood pressure 2023-09-17 18:09:00 135 mm[Hg] [facility] Diastolic blood pressure 2023-09-17 18:09:00 91 mm[Hg] [facility] Heart rate 2023-09-17 18:00:00 83 /min [facility] Body temperature 2023-09-17 18:00:00 36.78 Andree [facility] Respiratory rate 2023-09-17 18:00:00 16 /min [facility] Body height 2023-09-17 18:00:00 160 cm [facility] Body weight 2023-09-17 18:00:00 60.782 kg [facility] BMI 2023-09-17 18:00:00 23.74 kg/m2 [facility] Systolic blood pressure 2023-09-05 13:37:00 127 mm[Hg] [facility] Diastolic blood pressure 2023-09-05 13:37:00 90 mm[Hg] [facility] Heart rate 2023-09-05 13:37:00 74 /min [facility] Body temperature 2023-09-05 13:37:00 36.67 Andree [facility] Respiratory rate 2023-09-05 13:37:00 16 /min [facility] Body height 2023-09-05 13:37:00 160 cm [facility] acute hospital Body weight 2023-09-05 13:37:00 62.869 kg [facility] acute hospital BMI 2023-09-05 13:37:00 24.55 kg/m2 General acute hospital Oxygen saturation in Arterial blood by Pulse oximetry 2023-09-05 13:37:00 98 /min [facility] Systolic blood pressure 2023-08-29 17:07:00 105 mm[Hg] [facility] Diastolic blood pressure 2023-08-29 17:07:00 72 mm[Hg] [facility] Heart rate 2023-08-29 17:07:00 69 /min [facility] Body temperature 2023-08-29 17:07:00 36.78 Andree [facility] Respiratory rate 2023-08-29 17:07:00 18 /min [facility] Oxygen saturation in Arterial blood by Pulse oximetry 2023-08-29 17:07:00 98 /min [facility] Body weight 2023-08-27 15:30:00 65.681 kg General acute hospital BMI 2023-08-27 15:30:00 25.65 kg/m2 General acute hospital Systolic blood pressure 2023-08-05 14:14:00 118 mm[Hg] [facility] Diastolic blood pressure 2023-08-05 14:14:00 80 mm[Hg] [facility] Heart rate 2023-08-05 14:13:00 78 /min [facility] Body temperature 2023-08-05 14:13:00 37.33 Andree [facility] Respiratory rate 2023-08-05 14:13:00 18 /min [facility] Body height 2023-08-05 14:13:00 160 cm General acute hospital Body weight 2023-08-05 14:13:00 62.143 kg General acute hospital BMI 2023-08-05 14:13:00 24.27 kg/m2 General acute hospital Systolic blood pressure 2023-07-23 20:02:00 145 mm[Hg] [facility] Diastolic blood pressure 2023-07-23 20:02:00 100 mm[Hg] [facility] Heart rate 2023-07-23 20:01:00 79 /min [facility] Body temperature 2023-07-23 20:01:00 36.78 Andree [facility] Respiratory rate 2023-07-23 20:01:00 16 /min [facility] Body height 2023-07-23 20:01:00 160 cm General acute hospital Body weight 2023-07-23 20:01:00 61.689 kg General acute hospital BMI 2023-07-23 20:01:00 24.09 kg/m2 General acute hospital Systolic blood pressure 2023-06-14 04:12:00 142 mm[Hg] [facility] Diastolic blood pressure 2023-06-14 04:12:00 103 mm[Hg] [facility] Heart rate 2023-06-14 04:12:00 65 /min [facility] Respiratory rate 2023-06-14 04:12:00 18 /min [facility] Oxygen saturation in Arterial blood by Pulse oximetry 2023-06-14 04:12:00 99 /min [facility] Body temperature 2023-06-14 01:40:00 37.39 Andree [facility] Body height 2023-06-14 01:40:00 160 cm General acute hospital Body weight 2023-06-14 01:40:00 61.689 kg [facility] BMI 2023-06-14 01:40:00 24.09 kg/m2 [facility] Systolic blood pressure 2022-09-04 18:54:00 133 mm[Hg] [facility] Diastolic blood pressure 2022-09-04 18:54:00 95 mm[Hg] [facility] Heart rate 2022-09-04 18:54:00 80 /min [facility] Respiratory rate 2022-09-04 18:54:00 18 /min [facility] Body height 2022-09-04 18:54:00 157.5 cm [facility] acute hospital Body weight 2022-09-04 18:54:00 60.056 kg General acute hospital BMI 2022-09-04 18:54:00 24.22 kg/m2 General acute hospital Systolic blood pressure 2022-09-03 18:18:00 123 mm[Hg] [facility] Diastolic blood pressure 2022-09-03 18:18:00 83 mm[Hg] [facility] Heart rate 2022-09-03 18:18:00 79 /min [facility] Body temperature 2022-09-03 18:18:00 36.72 Andree [facility] Respiratory rate 2022-09-03 18:18:00 16 /min [facility] Body height 2022-09-03 18:18:00 160 cm [facility] acute hospital Body weight 2022-09-03 18:18:00 60.283 kg General acute hospital BMI 2022-09-03 18:18:00 23.54 kg/m2 General acute hospital Oxygen saturation in Arterial blood by Pulse oximetry 2022-09-03 18:18:00 99 /min [facility] Systolic blood pressure 2022-08-27 14:00:00 133 mm[Hg] [facility] Diastolic blood pressure 2022-08-27 14:00:00 85 mm[Hg] [facility] Heart rate 2022-08-27 14:00:00 92 /min [facility] Body temperature 2022-08-27 14:00:00 36.56 Andree [facility] Respiratory rate 2022-08-27 14:00:00 16 /min [facility] Body height 2022-08-27 14:00:00 160 cm General acute hospital Body weight 2022-08-27 14:00:00 61.462 kg General acute hospital BMI 2022-08-27 14:00:00 24.00 kg/m2 [facility] Systolic blood pressure 2022-08-17 02:58:00 144 mm[Hg] [facility] Diastolic blood pressure 2022-08-17 02:58:00 100 mm[Hg] [facility] Heart rate 2022-08-17 02:58:00 90 /min [facility] Body temperature 2022-08-17 02:58:00 36.78 Andree [facility] Respiratory rate 2022-08-17 02:58:00 12 /min [facility] Body height 2022-08-17 02:58:00 160 cm General acute hospital Body weight 2022-08-17 02:58:00 61.236 kg General acute hospital BMI 2022-08-17 02:58:00 23.91 kg/m2 General acute hospital Oxygen saturation in Arterial blood by Pulse oximetry 2022-08-17 02:58:00 99 /min [facility] Systolic blood pressure 2022-08-14 20:51:00 136 mm[Hg] [facility] Diastolic blood pressure 2022-08-14 20:51:00 87 mm[Hg] [facility] Heart rate 2022-08-14 20:51:00 76 /min [facility] Body temperature 2022-08-14 20:51:00 37.39 Andree [facility] Respiratory rate 2022-08-14 20:51:00 16 /min [facility] Body height 2022-08-14 20:51:00 160 cm [facility] acute hospital Body weight 2022-08-14 20:51:00 61.326 kg General acute hospital BMI 2022-08-14 20:51:00 23.95 kg/m2 General acute hospital Oxygen saturation in Arterial blood by Pulse oximetry 2022-08-14 20:51:00 99 /min [facility] Systolic blood pressure 2022-07-12 15:59:00 155 mm[Hg] [facility] Diastolic blood pressure 2022-07-12 15:59:00 102 mm[Hg] [facility] Heart rate 2022-07-12 15:58:00 73 /min [facility] Body temperature 2022-07-12 15:58:00 36.94 Andree [facility] Respiratory rate 2022-07-12 15:58:00 16 /min [facility] Body height 2022-07-12 15:58:00 160 cm General acute hospital Body weight 2022-07-12 15:58:00 60.918 kg General acute hospital BMI 2022-07-12 15:58:00 23.79 kg/m2 General acute hospital Systolic blood pressure 2021-06-05 15:09:00 146 mm[Hg] [facility] Diastolic blood pressure 2021-06-05 15:09:00 101 mm[Hg] [facility] Heart rate 2021-06-05 15:09:00 82 /min [facility] Body temperature 2021-06-05 15:05:00 35.89 Andree [facility] Respiratory rate 2021-06-05 15:05:00 16 /min [facility] Body height 2021-06-05 15:05:00 160 cm [facility] acute hospital Body weight 2021-06-05 15:05:00 64.003 kg General acute hospital BMI 2021-06-05 15:05:00 24.99 kg/m2 [facility] acute hospital Procedures Procedure Date / Time Performed Performing Clinician Source POCT TEST 2023-09-17 00:00:00 Adum, Donna Colin [facility] HGB STAIN/KB STAIN 2023-08-29 14:03:00 Hector Nixon [facility] CBC WITH DIFF 2023-08-29 09:02:00 Tonia Espinal [facility] PROTHROMBIN TIME / INR 2023-08-28 02:19:00 Brandon Jules [facility] ACTIVATED PARTIAL THRMPLAS WISAM 2023-08-28 02:19:00 Radha Jules [facility] FIBRINOGEN 2023-08-28 02:19:00 [facility] HB ABO GROUPING 2023-08-28 01:18:00 Tonia Espinal [facility] HB HEMOGLOBIN STAINS 2023-08-28 01:18:00 Tonia Espinal [facility] RHO (D) IMMUNE GLOBULIN 2023-08-28 01:18:00 Ej Espinal [facility] CENTRAL NEURAXIAL BLOCK 2023-08-27 18:58:00 Leonardo Alvarado [facility] CBC WITH DIFF 2023-08-27 16:23:00 Tonia Espinal [facility] HEPATITIS B SURFACE ANTIGEN 2023-08-27 16:23:00 Tonia Espinal [facility] SYPHILIS IGG/IGM 2023-08-27 16:23:00 [facility] THIRD TRIMESTER ULTRASOUND 2023-08-27 14:29:00 Doctor Unassigned, [place] [facility] SCANNED LAB RESULTS 2023-07-28 06:01:00 Doctor U nassigned, [place] [facility] <14 WEEKS US LIMITED 2023-07-23 23:05:36 Adum, Donna Colin [facility] POCT URINALYSIS W/O SPECIFIC GRAVITY 2023-07-23 00:00:00 Adum, Donna Colin [facility] US FIRST TRIMESTER LESS THAN 14 WEEKS 2023-06-14 03:30:00 Rojelio Dennis [facility] TOTAL BETA HCG ASSAY 2023-06-14 02:38:00 Rojelio Dennis [facility] POCT TEST 2023-06-14 02:02:00 Rojelio Dennis [facility] URINALYSIS 2023-06-14 02:01:[address] [facility] NOTICE OF PRIVACY PRACTICES 2023-06-14 01:39:54 Doctor Unassigned, [place] [facility] CONSENT/REFUSAL FOR DIAGNOSIS AND TREATMENT 2023-06-14 01:38:12 Doctor Unassigned, [place] [facility] OB TRANSVAGINAL 2022-09-04 20:28:08 Adum, Donna Colin [facility] HCG, TOTAL, QN-Q 2022-09-04 20:06:00 Adum, [facility]EL[facility] ULTRASOUND 2022-09-03 05:01:00 Doctor Unassigned, [place] [facility] HCG, TOTAL, QN-Q 2022-08-27 17:20:00 Adum, [facility] FIRST TRIME[facility] LESS THAN 14 WEEKS 2022-08-17 05:58:09 Mario Lomax [facility] COMP. METABOLIC PANEL ([id number]) 2022-08-17 04:05:00 Mario Lomax [facility] TOTAL BETA HCG ASSAY 2022-08-17 04:05:00 Mario Lomax [facility] CBC WITH DIFF 2022-08-17 04:05:00 Mario Lomax [facility] URINALYSIS 2022-08-17 04:05:00 Mario Lomax [facility] CONSENT/REFUSAL FOR DIAGNOSIS AND TREATMENT 2022-08-17 02:43:36 Doctor Unassigned, [place] [facility] OB TRANSVAGINAL 2022-08-14 21:35:58 Adum, Donna Colin [facility] POCT TEST 2022-08-14 00:00:00 Donna Irvin [facility] CONSENT/REFUSAL FOR DIAGNOSIS AND TREATMENT 2022-07-12 14:50:59 Doctor Unassigned, [place] [facility] POCT URINALYSIS W/O SPECIFIC GRAVITY 2021-06-05 15:08:00 William Gonzáles [facility] Encounters Start Date/Time End Date/Time Encounter Type Admission Type Attending [facility] Care Facility Care Department Encounter ID Source 2024-07-26 14:30:00 2024-07-26 14:30:00 Outpatient R SANFORD PRETTY [facility] [id number] [facility] 2024-03-18 15:00:00 2024-03-18 15:15:00 Compressor Stations Superintendent Visit Lab, Ang - Db Sean van, Lucita Lab, Ang - Db [facility] 1.840.114 350.1.13.10 4.2.7.2.[id number] [facility] 2024-03-18 15:00:00 2024-03-18 15:00:00 Outpatient R SEAN Van, LUCITA DINO-SKINNY S, LUCITA [facility] [id number] [facility] 2024-03-18 14:00:00 2024-03-18 14:25:51 Office Visit Sarah Chaudharisol [facility] 1..114 350.1.13.10 4.2.7.2.[id number] [facility] 2023-10-06 15:00:00 2023-10-06 15:00:00 Outpatient R ARIEL YOUNG [facility] [id number] [facility] 2023-09-24 00:00:00 2023-09-24 00:00:00 Telephone Ariel Young [facility] 1..114 350.1.13.10 4.2.7.2.686 [id number] [facility] [id number] [facility] 2023-09-19 00:00:00 2023-09-19 00:00:00 Case Management Adbarbara [facility] 1.2840.114 350.1.13.10 4.2.7.2.[id number] [facility] 2023-09-17 13:15:00 2023-09-17 13:37:38 Outpatient R LYNSEYBARBARA [facility] [id number] [facility] 2023-09-17 13:15:00 2023-09-17 13:37:38 Routine Visit barbara [facility] 1.2840.114 350.1.13.10 4.2.7.2.[id number] [facility] 2023-09-08 00:00:00 2023-09-08 00:00:00 Outpatient [facility] [id number] [facility] 2023-09-08 00:00:00 2023-09-08 00:00:00 Outpatient P RICARDO HAMMER [facility] RONAK [id number] [facility] 2023-09-05 08:45:00 2023-09-05 09:19:23 Nurse Visit Nurse, Jasmin [facility] Jeevan Anderson [facility] 1.2840.114 350.1.13.10 4.2.7.2.[id number] [facility] 2023-09-05 08:45:00 2023-09-05 08:45:00 Outpatient R JEEVAN ANDERSON [facility] [id number] [facility] 2023-09-05 00:00:00 2023-09-05 00:00:00 Refill Adbarbara [facility] 1.2.840.114 350.1.13.10 4.2.7.2.[id number] [facility] 2023-09-04 00:00:00 2023-09-04 00:00:00 Refill Albaro Donna Colin [facility] 1.20.114 350.1.13.10 4.2.7.2.[id number] [facility] 2023-09-03 09:30:00 2023-09-03 09:30:00 Outpatient P [facility] [id number] [facility] 2023-09-02 09:45:00 2023-09-02 09:45:00 Outpatient P [facility] [id number] [facility] 2023-08-27 10:11:00 2023-08-29 13:00:00 Hospital Encounter Ricardo Hammer [facility] 1.0.114 350.1.13.10 4.2.7.2.[id number] [facility] 2023-08-27 13:44:00 2023-08-28 16:08:00 Anesthesia Event [facility] 1.20.114 350.1.13.10 4.2.7.2.[id number] [facility] 2023-08-27 15:30:00 2023-08-27 15:30:00 Outpatient DONNA BOURGEOIS [facility] [id number] [facility] 2023-08-27 08:45:00 2023-08-27 09:51:03 Compressor Stations Superintendent Visit 1, [facility] 1..114 350.1.13.10 4.2.7.2.[id number] [facility] 2023-08-22 09:45:00 2023-08-22 10:21:42 Outpatient STEWART CALERO [facility] [id number] [facility] 2023-08-22 09:45:00 2023-08-22 10:21:42 Telemedici ne Visit Deya Peterson Joseph [facility] SOFTWARE DEVELOPER [place] MATERNAL & CHILD [facility] 1.2.840.114 350.1.13.10 4.2.7.2.[id number] [facility] 2023-08-05 16:15:00 2023-08-05 16:15:00 Routine Visit AdDonna melton [facility] 1.2.840.114 350.1.13.10 4.2.7.2.[id number] [facility] 2023-08-05 09:15:00 2023-08-05 09:30:00 Compressor Stations Superintendent Visit 2, Adc Lab Adum, Donna Colin [facility] 1.2.840.114 350.1.13.10 4.2.7.2.[id number] [facility] 2023-08-05 16:15:00 2023-08-05 08:37:59 Outpatient R DONNA IRVIN [facility] [id number] [facility] 2023-08-05 00:00:00 2023-08-05 00:00:00 Refill AdDonna melton [facility] 1.2.840.114 350.1.13.10 4.2.7.2.[id number] [facility] 2023-08-05 00:00:00 2023-08-05 00:00:00 Telephone Tara Ricardo [facility] SOFTWARE DEVELOPER [facility] MATERNAL & CHILD [facility] 1.2.840.114 350.1.13.10 4.2.7.2.[id number] [facility] 2023-08-05 00:00:00 2023-08-05 00:00:00 Telephone Donna Irvin [facility] 1.840.114 350.1.13.10 4.2.7.2.[id number] [facility] 2023-08-05 00:00:00 2023-08-05 00:00:00 Telephone Tara Ricardo [facility] SOFTWARE DEVELOPER [place] [facility] MATERNAL & CHILD [facility] 1.840.114 350.1.13.10 4.2.7.2.[id number] [facility] 2023-08-04 00:00:00 2023-08-04 00:00:00 Telephone Adbarbara Donna Colin [facility] 1.0.114 350.1.13.10 4.2.7.2.[id number] [facility] 2023-07-28 07:30:00 2023-07-28 07:45:00 Compressor Stations Superintendent Visit Pob, Adc Lab Jeevan Clark [facility] 1.0.114 350.1.13.10 4.2.7.2.[id number] [facility] 2023-07-28 07:30:00 2023-07-28 07:30:00 Outpatient R JEEVAN ANDERSON [facility] [id number] [facility] 2023-07-28 00:00:00 2023-07-28 00:00:00 Orders Only Doctor Unassigned, [place] [facility] 1.0.114 350.1.13.10 4.2.7.2.[id number] [facility] 2023-07-24 00:00:00 2023-07-24 00:00:00 Case Management AdumDonna [facility] 1.0.114 350.1.13.10 4.2.7.2.[id number] [facility] 2023-07-23 14:00:00 2023-07-23 14:40:17 Outpatient R ALBARO DONNA [facility] [id number] [facility] 2023-07-23 14:00:00 2023-07-23 14:40:17 Initial Visit Albaro Donna [facility] 1.0.114 350.1.13.10 4.2.7.2.[id number] [facility] 2023-06-13 19:43:00 2023-06-13 22:27:00 Emergency X ROJELIO DENNIS [facility] [id number] [facility] 2023-06-13 19:43:00 2023-06-13 22:27:00 Emergency Rojelio Dennis [facility] 1.0.114 350.1.13.10 4.2.7.2.[id number] [facility] 2022-09-05 00:00:00 2022-09-05 00:00:00 Telephone Albaro Donna [facility] 1.84.114 350.1.13.10 4.2.7.2.[id number] [facility] 2022-09-04 13:30:00 2022-09-04 15:00:41 Outpatient R DONNA IRVIN [facility] [id number] [facility] 2022-09-04 13:30:00 2022-09-04 15:00:41 Office Visit Albaro Donna [facility] 1..114 350.1.13.10 4.2.7.2.[id number] [facility] 2022-09-04 00:00:00 2022-09-04 00:00:00 Orders Only Adum, [facility] 1.2.840.114 350.1.13.10 4.2.7.2.[id number] [facility] 2022-09-03 13:00:00 2022-09-03 13:16:42 Outpatient R ALBARO [facility] [id number] [facility] 2022-09-03 13:00:00 2022-09-03 13:16:42 [facility] 1.2.840.114 350.1.13.10 4.2.7.2.[id number] [facility] 2022-09-03 00:00:00 2022-09-03 00:00:00 Orders Only Doctor Unassigned, [place] [facility] 1.2.840.114 350.1.13.10 4.2.7.2.[id number] [facility] 2022-08-27 09:00:00 2022-08-27 09:57:29 Outpatient R ALBARO [facility] [id number] [facility] 2022-08-27 09:00:00 2022-08-27 09:57:29 Office Visit Albaro [facility] 1.2.840.114 350.1.13.10 4.2.7.2.[id number] [facility] 2022-08-27 00:00:00 2022-08-27 00:00:00 Orders Only barbara [facility] 1.2.840.114 350.1.13.10 4.2.7.2.[id number] [facility] 2022-08-21 00:00:00 2022-08-21 00:00:00 Outpatient R LABARO [facility] [id number] [facility] 2022-08-16 21:00:00 2022-08-17 01:12:00 Emergency X MARIO LOMAX [facility] ERT [id number] [facility] 2022-08-16 21:00:00 2022-08-17 01:12:00 Emergency Mario Lomax S [facility] 1.2840.114 350.1.13.10 4.2.7.2.[id number] [facility] 2022-08-16 12:00:00 2022-08-16 12:22:10 Compressor Stations Superintendent Visit Lab, Eleazar Irvin [facility] MEDICAL OFFICE BUILDING 1..840.114 350.1.13.10 4.2.7.2.[id number] [facility] 2022-08-16 12:00:00 2022-08-16 12:00:00 Outpatient R ALBARO [facility] [id number] [facility] 2022-08-16 00:00:00 2022-08-16 00:00:00 Case Management Albaro [facility] 1..840.114 350.1.13.10 4.2.7.2.[id number] [facility] 2022-08-14 16:45:00 2022-08-14 17:00:00 Compressor Stations Superintendent Visit Lab, Eleazar Caicedo Db Albaro [facility] MEDICAL OFFICE BUILDING 1.840.114 350.1.13.10 4.2.7.2.[id number] [facility] 2022-08-14 14:30:00 2022-08-14 15:35:10 Outpatient R ALBARO [facility] [id number] [facility] 2022-08-14 14:30:00 2022-08-14 15:35:10 Initial Visit Donna Irvin [facility] 1.114 350.1.13.10 4.2.7.2.[id number] [facility] 2022-08-13 08:30:00 2022-08-13 08:30:00 Outpatient JUVE MALIN [facility] [id number] [facility] 2022-07-12 09:30:00 2022-07-12 10:46:23 Office Visit Provider, Tara Mack [facility] SOFTWARE DEVELOPER [place] [facility] MATERNAL & CHILD [facility] 1..114 350.1.13.10 4.2.7.2.[id number] [facility] 2022-07-12 09:00:00 2022-07-12 09:00:00 Outpatient TARA GUZMÁN [facility] [id number] [facility] 2022-07-12 00:00:00 2022-07-12 00:00:00 Orders Only Doctor Unassigned, [place] [facility] 1..114 350.1.13.10 4.2.7.2.[id number] [facility] 2022-06-08 00:00:00 2022-06-08 00:00:00 Refill William Gonzáles [facility] SOFTWARE DEVELOPER MID [place]EL [facility] & CHILD [facility] 1..114 350.1.13.10 4.2.7.2.[id number] [facility] 2021-06-08 00:00:00 2021-06-08 00:00:00 William Crouch [facility] SOFTWARE DEVELOPER [place]EL [facility] & CHILD [facility] 1.840.114 350.1.13.10 4.2.7.2.[id number] [facility] 2021-06-05 08:45:00 2021-06-05 09:58:42 Office Visit William Gonzáles [facility] SOFTWARE DEVELOPER [place] [facility] & CHILD [facility] 1.2.840.114 350.1.13.10 4.2.7.2.[id number] [facility] 2021-06-05 08:45:00 2021-06-05 09:58:42 Outpatient R WILLIAM GONZÁLES [facility] [id number] [facility] 2021-06-05 08:45:00 2021-06-05 08:45:00 Outpatient R WILLIAM GONZÁLES [facility] [id number] [facility] 2021-04-06 00:00:00 2021-04-06 00:00:00 Refill William Gonzáles [facility] SOFTWARE DEVELOPER [place] [facility] 1..840.114 350.1.13.10 4.2.7.2.[id number] [facility] 2021-03-09 00:00:00 2021-03-09 00:00:00 Telephone William Gonzáles [facility] SOFTWARE DEVELOPER [place]EL [facility] & CHILD [facility] 1..840.114 350.1.13.10 4.2.7.2.[id number] [facility] 2021-03-07 09:30:00 2021-03-07 09:30:00 Outpatient JUVE MALIN [facility] [id number] [facility] 2021-03-06 00:00:00 2021-03-06 00:00:00 Juve Arauz [facility] SOFTWARE DEVELOPER [place] [facility] & CHILD [facility] 1..840.114 350.1.13.10 4.2.7.2.[id number] [facility] 2021-02-13 10:15:00 2021-02-13 10:15:00 Outpatient JUVE MALIN [facility] [id number] [facility] 2021-01-29 14:41:13 2021-01-29 15:38:02 Office Visit Juve Orozco [facility] SOFTWARE DEVELOPER [place] [facility] MATERNAL & CHILD [facility] 1..114 350.1.13.10 4.2.7.2.[id number] [facility] 2021-01-29 14:00:00 2021-01-29 14:00:00 Outpatient R JUVE OROZCO [facility] [id number] [facility] 2021-01-19 14:20:19 2021-01-19 14:40:19 Laboratory Only Lab, [facility] Pob I Sheldon van, [facility] Office Building One ..114 350.1.13.10 4.2.7.2.[id number] [facility] 2021-01-19 14:20:00 2021-01-19 14:20:00 Outpatient R SHELDON Van [facility] [id number] [facility] 2021-01-11 00:00:00 2021-01-11 00:00:00 Telephone Juve Orozco [facility] SOFTWARE DEVELOPER [place] L[place]EL [facility] & CHILD [facility] 1..114 350.1.13.10 4.2.7.2.[id number] [facility] 2021-01-08 00:00:00 2021-01-08 00:00:00 Refill Juve Orozco [facility] SOFTWARE DEVELOPER MID L[place]EL [facility] CHILD [facility] 1..114 350.1.13.10 4.2.7.2.[id number] [facility] 2020-10-27 08:27:01 2020-10-27 10:32:27 Office Visit Juve Orozco [facility] SOFTWARE DEVELOPER [place] [facility] & CHILD [facility] 1..840.114 350.1.13.10 4.2.7.2.[id number] [facility] 2020-10-27 08:30:00 2020-10-27 08:30:00 Outpatient R [facility] [id number] [facility] 2020-08-04 09:49:18 2020-08-04 10:06:50 [facility] SOFTWARE DEVELOPER [place]EL [facility] & CHILD [facility] ..840.114 350.1.13.10 4.2.7.2.[id number] [facility] 2020-08-04 10:00:00 2020-08-04 10:00:00 Outpatient R WILLIAM GONZÁLES [facility] [id number] [facility] 2020-08-04 09:30:00 2020-08-04 09:30:00 Outpatient R JUVE OROZCO [facility] [id number] [facility] 2020-08-01 15:30:00 2020-08-01 15:30:00 Outpatient R WILLIAM GONZÁLES [facility] [id number] [facility] 2020-07-25 10:00:00 2020-07-25 10:00:00 Outpatient R WILLIAM GONZÁLES [facility] [id number] [facility] 2020-05-01 08:27:43 2020-05-01 08:52:34 Nurse Visit Visit, [facility] 1..840.114 350.1.13.10 4.2.7.2.[id number] [facility] 2020-05-01 08:30:00 2020-05-01 08:30:00 Outpatient R [facility] [id number] [facility] 2020-02-07 08:03:2020-02-07 08:23:18 Nurse Visit Visit, Ang-Rmchp Nurse Juve Orozco [facility] SOFTWARE DEVELOPER MID L[place]EL [facility] MATERNAL & CH[facility] 1.114 350.1.13.10 4.2.7.2.[id number] [facility] 2020-02-07 08:00:00 2020-02-07 08:00:00 Outpatient R JUVE OROZCO [facility] [id number] [facility] 2019-12-20 00:00:00 2019-12-20 00:00:00 Telephone Annemarie Sewelle Mart [facility] 1.114 350.1.13.10 4.2.7.2.[id number] [facility] 2019-12-16 00:00:00 2019-12-16 00:00:00 Patient Secure Msg Doctor Unassigned, [place] EMELINA TAN 1.114 350.1.13.10 4.2.7.2.[id number] [facility] 2019-12-15 00:00:00 2019-12-15 00:00:00 Telephone Posuri, Acute Care Clinic [facility] Office Building One 1.114 350.1.13.10 4.2.7.2.[id number] [facility] 2019-12-14 14:20:00 2019-12-14 14:20:00 Outpatient R [facility] [id number] [facility] 2019-12-14 13:54:32 2019-12-14 14:14:32 Laboratory Only Lab, Adc Fam Pob Katerin Neely [facility] Office Building One 1.114 350.1.13.10 4.2.7.2.[id number] [facility] 2019-11-22 00:00:00 2019-11-22 00:00:00 Telephone William Gonzáles Quan [facility] SOFTWARE DEVELOPER MID L[place]EL [facility] MATERNAL & CHILD [facility] 1.2.840.114 350.1.13.10 4.2.7.2.[id number] [facility] 2019-11-18 00:00:00 2019-11-18 00:00:00 Telephone Cee Dewitt [facility] SOFTWARE DEVELOPER [place] [facility] CHILD [facility] 1.2.840.114 350.1.13.10 4.2.7.2.[id number] [facility] 2019-11-15 00:00:00 2019-11-15 00:00:00 Telephone Cee Dewitt [facility] SOFTWARE DEVELOPER [place] [facility] CHILD [facility] 1.2.840.114 350.1.13.10 4.2.7.2.[id number] [facility] 2019-11-15 00:00:00 2019-11-15 00:00:00 Telephone Cee Dewitt [facility] SOFTWARE DEVELOPER [place] [facility] CHILD [facility] 1.2.840.114 350.1.13.10 4.2.7.2.[id number] [facility] 2019-11-15 00:00:00 2019-11-15 00:00:00 Patient Secure Msg Doctor Unassigned, [place] [facility] SOFTWARE DEVELOPER MID LEVEL [facility] & CHILD [facility] 1.2.840.114 350.1.13.10 4.2.7.2.[id number] [facility] 2019-11-14 00:00:00 2019-11-14 00:00:00 Case Management Cee Dewitt [facility] 1.2.840.114 350.1.13.10 4.2.7.2.[id number] [facility] 2019-11-11 09:54:20 2019-11-11 11:25:26 Office Visit Provider, Laila Dewitt, Cee [facility] SOFTWARE DEVELOPER [place]EL [facility] 1.2.840.114 350.1.13.10 4.2.7.2.[id number] [facility] 2019-11-11 10:00:00 2019-11-11 10:00:00 Outpatient R [facility] [id number] [facility] 2019-09-06 09:30:00 2019-09-06 09:30:00 Outpatient WILLIAM KUO [facility] [id number] [facility] 2019-08-19 10:06:49 2019-08-19 10:32:04 Nurse Visit Visit, William Arrieta [facility] 1.2.840.114 350.1.13.10 4.2.7.2.[id number] [facility] 2019-08-19 09:30:00 2019-08-19 09:30:00 Outpatient WILLIAM KUO [facility] [id number] [facility] Results Test Description Test Time Test Comments Results Result Co mments Source COMPREHENSIVE METABOLIC [id number] 08:36:43* Test Item Value Reference Range Interpretation Comme nts GLUCOSE (test code = 2217) 81 MG/DL 70-99 BUN (test code = 2208) 10 MG/DL 6-20 CREATININE (test code = 2214) 0.82 MG/DL 0.60-1.30 eGFR (2020 CKD-EPI) (test co de = 43112) 99 ML/MIN/1.73 >60 CALC BUN/CREAT (test code = 2235) 12 RATIO 6-28 SODIUM (test code = 2231) 141 MEQ/L 133-146 POTASSIUM (test code = 2228) 4.1 MEQ/L 3.5-5.4 CHLORIDE (test code = 2215) 105 MEQ/L 95-107 CARBON DIOXIDE (test code = 2206) 22 MEQ/L 19-31 CALCIUM (test code = 2209) 9.8 MG/DL 8.5-10.5 PROTEIN, TOTAL (test code = 2229) 7.2 G/DL 6.1-8.3 ALBUMIN (test code = 220) 4.7 G/DL 3.5-5.2 CALC GLOBULIN (test code = 2240) 2.5 G/DL 1.9-3.7 CALC A/G RATIO (test code = 2234) 1.9 RATIO 1.0-2.6 BILIRUBIN, TOTAL (test code = 2206) 0.3 MG/DL <=1.2 ALKALINE PHOSPHATASE (test code = 2203) 43 U/L 40-112 AST (test code = 2218) 17 U/L 9-40 ALT (test code = 221) 16 U/L 5-40 LIPID [id number] 08:36:43* Test Item Value Reference Range Interpretation Comme nts CHOLESTEROL (test code = 0) 230 MG/DL <200 H TRIGLYCERIDES (test code = 2232) 66 MG/DL <150 HDL CHOLESTEROL (test code = 2219) 58 MG/DL >39 CALC LDL CHOL (test code = 2236) 156 MG/DL <100 H NOTE: CALCULATED LDL IS BASED ON NICHOLAS-AMAYA METHOD WHICHINCLUDES ADJUSTABLE TRIGLYCERIDE:VLDL CHOLESTEROL RATIO.THIS FACTOR VARIES BY MEASURED TRIGLYCERIDE AND NON-HDLCHOLESTEROL CONCENTRATIONS WITH INCREASED CALCULATED LDL SEENIN HIGHER TRIGLYCERIDE OR LOWER NON-HDL SPECIMENS. FOR MOREINFORMATION, SEE CLIENT ANNOUNCEMENT AT [email or web address] RISK RATIO LDL/HDL (test code = 223) 2.69 RATIO <3.22 CBC W/AUTO DIFF WITH [id number] 07:10:52* Test Item Value Reference Range Interpretation Comme nts WBC (test code = 1001) 5.7 K/UL 3.5-11.0 RBC (test code = 1002) 4.71 M/UL 3.80-5.40 HEMOGLOBIN (test code = 1003) 14.4 G/DL 11.5-15.5 HEMATOCRIT (test code = 1004) 42.3 % 34.0-45.0 MCV (test code = 1005) 89.8 fL 80.0-99.0 MCH (test code = 1006) 30.6 PG 25.0-33.0 MCHC (test code = 1007) 34.0 G/DL 31.0-36.0 RDW (test code = 1038) 12.0 % 11.5-15.0 NEUTROPHILS (test code = 1008) 72.0 % LYMPHOCYTES (test code = 1010) 19.3 % MONOCYTES (test code = 1011) 7.3 % EOSINOPHILS (test code = 1012) 0.7 % BASOPHILS (test code = 1013) 0.5 % IMMATURE GRANULOCYTES (test code = 1036) 0.2 % NUCLEATED RBCS (test code = 1065) 0.0 /100 WBC'S See_Comment [Automated messa ge] The system which generated this result transmitted reference range: 0.0. The reference range was not used to interpret this result as normal/abnormal. PLATELET COUNT (test code = 1015) 319 K/UL 130-400 ABSOLUTE NEUTROPHILS (test code = 1066) 4.13 K/UL 1.50-7.50 ABSOLUTE LYMPHOCYTES (test code = 1067) 1.11 K/UL 1.00-4.00 ABSOLUTE MONOCYTES (test code = 1068) 0.42 K/UL 0.20-1.00 ABSOLUTE EOSINOPHILS (test code = 1040) 0.04 K/UL 0.00-0.50 ABSOLUTE BASOPHILS (test code = 1069) 0.03 K/UL 0.00-0.20 ABS IMMATURE GRANULOCYTES (test code = 1020) 0.01 K/UL 0.00-0.10 ABS NUCLEATED RBCS (test code = 92635) 0.00 K/UL 0.00-0.11 POCT [id number] 18:48:00* Test Item Value Reference Range Interpretation Comme nts POCT PREG (test code = 1605) Negative On board controls acceptable with C Line (test code = 3574) Yes POCT PREG LOT # (test code = 3575) POCT PREG TEST DATE ( test code = 3576) [facility] H[facility] Stain/KB [id number] 17:14:21* Test Item Value Reference Range Interpretation Comme nts RHIG REQUIRED? (test code = 1747) 2 Syringes Performed at [facility] Laboratory Services [facility] Blood [address] [place] [address]Vpgs Free: [phone] No. [id number] HGB STAIN (test code = 843) Positive Performed at [facility] Laboratory Services [facility] Blood [address] [address]Oizb Free: [phone] No. [id number] BLEED IN MLS (test code = 5045) See comment 20Performed a t [facility] Laboratory Services [facility] Blood [address] [address]Hnsq Free: [phone] No. [id number] [facility] with [id number] 09:31:26* Test Item Value Reference Range Interpretation Comme nts WBC (test code = 6690-2) 7.65 4.30-11.10 RBC (test code = 789-8) 3.19 3.93-5.25 L HGB (test code = 718-7) 10.0 g/dL 11.6-15.0 L HCT (test code = 4544-3) 28.3 % 35.7-45.2 L MCV (test code = 787-2) 88.7 fL 80.6-95.5 MCH (test code = 785-6) 31.3 pg 25.9-32.8 MCHC (test code = 786-4) 35.3 g/dL 31.6-35.1 H RDW-SD (test code = 17079-8) 43.9 fL 39.0-49.9 RDW-CV (test code = 788-0) 13.5 % 12.0-15.5 PLT (test code = 777-3) 197 166-358 MPV (test code = 45577-1) 9.4 fL 9.5-12.9 L NRBC/100 WBC (test code = 4060193293) 0.0 0.0-10.0 NRBC x10^3 (test code = 7515339865) See_Comment [Automated messa ge] The system which generated this result transmitted reference range: 10*3/?L. The reference range was not used to interpret this result as normal/abnormal. GRAN MAT (NEUT) % (test code = 770-8) 66.5 % IMM GRAN % (test code = 6578922274) 0.70 % LYMPH % (test code = 736-9) 19.9 % MONO % (test code = 5905-5) 7.8 % EOS % (test code = 713-8) 4.7 % BASO % (test code = 706-2) 0.4 % GRAN MAT x10^3(ANC) (test code = 4395619525) 5.09 10*3/uL 1.88-7.09 IMM GRAN x10^3 (test code = 8431989481) 0.05 10*3/uL 0.00-0.06 LYMPH x10^3 (test code = 731-0) 1.52 10*3/uL 1.32-3.29 MONO x10^3 (test code = 742-7) 0.60 10*3/uL 0.33-0.92 EOS x10^3 (test code = 711-2) 0.36 10*3/uL 0.03-0.39 BASO x10^3 (test code = 704-7) 0.03 10*3/uL 0.01-0.07 Lab Interpretation (test code = 75425-5) Abnormal [facility] (D) IMMUNE [id number] 01:31:34* Test Item Value Reference Range Interpretation Comme nts RHIG CANDIDATE? (test code = 5188) Yes- see comment A Patient is a candidate for RhIg- Patient is Rh Negative and baby is Rh Unknown.Performed at [facility] Laboratory Services - [facility] Blood [address] [address]Fxwh Free: [phone] No. [id number] Lab Interpretation (test code = 70621-5) Abnormal [facility] - SYPHILIS [id number] 15:10:46* Test Item Value Reference Range Interpretation Comme nts Syphilis IgG/IgM (test code = 95926-4) Non-reactive Non-reactive JUAN (test code = JUAN) Non-reactive - No serologic evidence of T. pallidum infection. Cannot exclude incubating or early syphilis. Submit a second specimen in 2-4 weeks if syphilis is clinically suspected. Equivocal - Further testing to follow. Reactive - Further testing to follow. Lab Interpretation (test code = 76829-5) Normal [facility] (D) IMMUNE [id number] 04:14:30* Test Item Value Reference Range Interpretation Comme nts RHIG CANDIDATE? (test code = 5188) Yes- see comment A Patient is a candidate for RhIg- Patient is Rh Negative and baby is Rh Unknown.Performed at [facility] Laboratory Services - [facility] Blood [address] [place] [address]Spsf Free: [phone] No. [id number] Lab Interpretation (test code = 21882-9) Abnormal [facility] ArlingtonProthrombin Time / [id number] 02:43:33* Test Item Value Reference Range Interpretation Comme nts PROTIME PATIENT (test code = 5964-2) 10.2 10.1-12.6 INR (test code = 6301-6) 0.9 Normal INR <1.1; Warfarin Therapeutic range 2.0 to 3.0 or 2.5 to 3.5, depending upon the indications. Lab Interpretation (test code = 80820-1) Normal [facility] ArlingtonFibrinogen2024-03-21 02:43:33* Test Item Value Reference Range Interpretation Comme nts Fibrinogen (test code = 3411112594) 342 mg/dL 167-453 Lab Interpretation (test cod e = 10789-7) Normal [facility] ArlingtonaPTT2024-03-21 02:43:32* Test Item Value Reference Range Interpretation Comme nts APTT Patient (test code = 3173-2) 22 26-36 L Lab Interpretation (test cod e = 32151-8) Abnormal [facility]Type and Screen - ONCE [id number] 01:24:00 * Test Item Value Reference Range Interpretation Comme nts ABO & RH (test code = 20) A NEGATIVE IAT (test code = 1185) Negative [facility] ArlingtonFetal HGB Stain/KB [id number] 01:24:00* Test Item Value Reference Range Interpretation Comme nts HGB STAIN (test code = 843) Negative RHIG REQUIRED? (test code = 1747) 0 Syringes BLEED IN MLS (test cod e = 5045) See comment 0 [facility] ArlingtonCentral Neuraxial [id number] 18:58:00Leonardo Alvarado MD ? ? 08/27/2023 ?1:58 PM Central Neuraxial Block Date/Time: 08/27/2023 1:58 PM Performedby: Isaac Russ, DOAuthorized by: Maya Payne MD ?Patient Location: OBReason for Block: OB request, Patient request, Labor analgesia, Surgical anesthesia and Post-op pain managementStaff: ?Anesthesiologist: Maya Payne MD ?Resident/ASSOCIATE DENTIST: Isaac Russ, DO ?Performed by: resident/CRNAPreanesthetic Checklist: patient identified, IV checked, risks and benefitsexplained, monitors and equipment checked, timeout performed, pre-op evaluation, site marked and anesthesia consentProcedure: ?Type of Neuraxial: Epidural ?Epidural Description: 1st attempt ? Sterility Prep cap, drape, gloves, hand hygiene and mask ?Patient Position: sitting ?Prep: Betadine and patient draped ? ?Monitoring: heart rate, continuous pulse ox, heart rate / toco and NIBP ?Location: lumbar (1-5) ?Lumbar: L3-L4 ?Approach: midline ? ?Technique: JESSENIA air and catheter ?Guidance with: landmark technique}Epidural/Spinal [place] and/or Catheter: ?Epidural/Spinal Kit: BBraun ?Needle Type: Tuohy ?Needle Gauge: 17 G ?Needle Length: 3.5 in (8.89 cm) ?Needle Insertion Depth: 4.5 ?Catheter Type: multiport ? ?Catheter Size: 19 G ? ?Catheter at Skin Depth: 9 ?Number of Attempts: 1 ?Test Dose: lidocaine 1.5% with epinephrine 1-to-200,000 ? ?Dose: 5 cc ? ?Catheter Securement Method: surgical tape, Tegaderm, clear occlusive dressing and liquid medical adhesiveAssessment: ?Block Outcome:patient tolerated procedure well ? ?Procedure Assessment: patient tolerated procedure well with no c omplicationsNotes: ? Patient consented and positioned sitting upright with instructions given regarding positioning and maintaining a sterile field. Patient prepped and draped in sterile fashion. Epidural kit opened and medications prepared utilizing sterile protocol. JESSENIA to Saline was used midline at L3L4 interspace. JESSENIA was at ?4.5 cm attempts x 1. Catheter threaded smoothly, taped at skin at 9cm. Negative aspiration of blood or CSF x 3. Negative Test dose. Epidural catheter secured in placeusing tegederm and tape while maintaining insertion site sterility. Pumps settings are continuous 12cc/hr PCEA 4cc- 15 mins lockout. 5 ml bolus was given initially. Patient instructed to lay back down on back and given instructions on SACK KEEPER functionality. Fall precautions provided, patient vocalized understanding and all questions answered. ? [facility] [id number] 18:58:00Leonardo Alvarado MD ? ? 08/27/2023 ?1:58 PM Central Neuraxial Block Date/Time: 08/27/2023 1:58 PM Performedby: Isaac Russ, DOAuthorized by: Maya Payne MD ?Patient Location: OBReason for Block: OB request, Patient request, Labor analgesia, Surgical anesthesia and Post-op pain managementStaff: ?Anesthesiologist: Maya Payne MD ?Resident/ASSOCIATE DENTIST: Isaac Russ, DO ?Performed by: resident/CRNAPreanesthetic Checklist: patient identified, IV checked, risks and benefitsexplained, monitors and equipment checked, timeout performed, pre-op evaluation, site marked and anesthesia consentProcedure: ?Type of Neuraxial: Epidural ?Epidural Description: 1st attempt ? Sterility Prep cap, drape, gloves, hand hygiene and mask ?Patient Position: sitting ?Prep: Betadine and patient draped ? ?Monitoring: heart rate, continuous pulse ox, heart rate / toco and NIBP ?Location: lumbar (1-5) ?Lumbar: L3-L4 ?Approach: midline ? ?Technique: JESSENIA air and catheter ?Guidance with: landmark technique}Epidural/Spinal [place] and/or Catheter: ?Epidural/Spinal Kit: BBraun ?Needle Type: Tuohy ?Needle Gauge: 17 G ?Needle Length: 3.5 in (8.89 cm) ?Needle Insertion Depth: 4.5 ?Catheter Type: multiport ? ?Catheter Size: 19 G ? ?Catheter at Skin Depth: 9 ?Number of Attempts: 1 ?Test Dose: lidocaine 1.5% with epinephrine 1-to-200,000 ? ?Dose: 5 cc ? ?Catheter Securement Method: surgical tape, Tegaderm, clear occlusive dressing and liquid medical adhesiveAssessment: ?Block Outcome:patient tolerated procedure well ? ?Procedure Assessment: patient tolerated procedure well with no c omplicationsNotes: ? Patient consented and positioned sitting upright with instructions given regarding positioning and maintaining a sterile field. Patient prepped and draped in sterile fashion. Epidural kit opened and medications prepared utilizing sterile protocol. JESSENIA to Saline was used midline at L3L4 interspace. JESSENIA was at ?4.5 cm attempts x 1. Catheter threaded smoothly, taped at skin at 9cm. Negative aspiration of blood or CSF x 3. Negative Test dose. Epidural catheter secured in placeusing tegederm and tape while maintaining insertion site sterility. Pumps settings are continuous 12cc/hr PCEA 4cc- 15 mins lockout. 5 ml bolus was given initially. Patient instructed to lay back down on back and given instructions on SACK KEEPER functionality. Fall precautions provided, patient vocalized understanding and all questions answered. ? [facility] Arlington[facility]atitis B Surface [id number] 17:53:50 * Test Item Value Reference Range Interpretation Comme nts HBsAg Semi-Quantitative (boni t code = 5195-3) 0.05 Negative [facility] ArlingtonCBC with [id number] 16:40:52* Test Item Value Reference Range Interpretation Comme nts WBC (test code = 6690-2) 6.50 4.30-11.10 RBC (test code = 789-8) 3.98 3.93-5.25 HGB (test code = 718-7) 12.3 g/dL 11.6-15.0 HCT (test code = 4544-3) 34.6 % 35.7-45.2 L MCV (test code = 787-2) 86.9 fL 80.6-95.5 MCH (test code = 785-6) 30.9 pg 25.9-32.8 MCHC (test code = 786-4) 35.5 g/dL 31.6-35.1 H RDW-SD (test code = 73983-9) 42.9 fL 39.0-49.9 RDW-CV (test code = 788-0) 13.7 % 12.0-15.5 PLT (test code = 777-3) 244 166-358 MPV (test code = 39859-4) 9.3 fL 9.5-12.9 L NRBC/100 WBC (test code = 8440508632) 0.0 0.0-10.0 NRBC x10^3 (test code = 5056353392) See_Comment [Automated messa ge] The system which generated this result transmitted reference range: 10*3/?L. The reference range was not used to interpret this result as normal/abnormal. GRAN MAT (NEUT) % (test code = 770-8) 68.0 % IMM GRAN % (test code = 9772738241) 0.30 % LYMPH % (test code = 736-9) 21.2 % MONO % (test code = 5905-5) 8.0 % EOS % (test code = 713-8) 2.0 % BASO % (test code = 706-2) 0.5 % GRAN MAT x10^3(ANC) (test code = 0814334246) 4.42 10*3/uL 1.88-7.09 IMM GRAN x10^3 (test code = 5336655711) 0.00-0.06 LYMPH x10^3 (test code = 731-0) 1.38 10*3/uL 1.32-3.29 MONO x10^3 (test code = 742-7) 0.52 10*3/uL 0.33-0.92 EOS x10^3 (test code = 711-2) 0.13 10*3/uL 0.03-0.39 BASO x10^3 (test code = 704-7) 0.03 10*3/uL 0.01-0.07 Lab Interpretation (test code = 94039-6) Abnormal [facility] Urinalysis w/o Specific [id number] 19:58:00* Test Item Value Reference Range Interpretation Comme nts POCT PH U (test code = 3254) n/a 5-8 POCT U LEUK EST (test code = 3843) n/a Negative - Negative POCT U NIT (test code = 3262) n/a Negative - Negati ve POCT U PROT (test code = 6589) negative Negative - Negat anthony POCT U GLU (test code = 0686) negative Negative - Negati ve POCT U KETONE (test code = 6948) n/a Negative - Neg ative POCT U BLD (test code = 3257) n/a Negative - Negati ve [facility] FIRST TRIMESTER LESS THAN 14 [id number] 03:52:39Ordering physician: ROJELIO DENNIS Clinical indication: Lower abdominal pain in Comparison:None Technique: First trimester obstetrical ultrasound Technical quality: Adequate Findings: The study was performed only with transabdominal technique. The patientreportedly declined transvaginal scanning. The uterus measures 12.0 x 6.3 x7.9 cm. A single intrauterine gestational sac is present. A single yolk sacand a single pole are identified. cardiac activity isdocumented, with a heart rate of 169 bpm. A crown-rump length of 18.82 mmindicates an estimated gestational age of 8 weeks 3 days. No abnormalitiesof the sac are patent. The right ovary measures 3.5 x 2.8 x 3.7 cm and theleft ovary 2.9 x 1.3 x 2.8 cm. Color Doppler demonstrates blood flow withinboth ovaries. No adnexalmasses are seen. No free fluid is noted.[facility] BHCG (QUANTITATIVE) 2023-06-14 03:39:00* Test Item Value Reference Range Interpretation Comme nts BETA HCG (test code = 9809085406) 57482.00 See_Comment [Automated [employer]] The system which generated this result transmitted reference range: Non- female and male patients: <5 mIU/mL. The reference range was not used to interpret this result as normal/abnormal. JUAN (test code = JUAN) Gestational Age ?Range (mIU/mL) 1-10 ?Weeks ?56-46753593-29 Weeks ?51465-09901922-59 Weeks ?9064-99765871-63 Weeks ?8817-620485 Biotin has been reported to cause a negative bias, interpret results relative to patient's use of biotin. [facility] [id number] 02:02:00* Test Item Value Reference Range Interpretation Comme nts POCT PREG (test code = 1605) Positive On board controls acceptable with C Line (test code = 3574) Yes POCT PREG LOT # (test code = 3575) 600783 POCT PREG TEST DATE ( test code = 3576) 08/17/2024 Lab Interpretation (test cod e = 15282-5) Normal [facility], TOTAL, [id number] 11:00:00* Test Item Value Reference Range Interpretation Comments HCG, TOTAL, QN-Q (test code = 88437-4) 2185 mIU/mL H Verified by repe at analysis. Reference RangeNon or premenopausal ? ?<5Postmenopausal ? <10 Values from different assay methods may vary.The use of this assay to monitor or to diagnose patients with cancer or any condition unrelatedto has not been cleared or approved [facility] [place] FDA or the line supervisor of the assay. JUAN (test code = JUAN) PERFORMED BY [employer] [place]; [address] [place] [address]; EL KAN MD Lab Interpretation (test code = 97035-1) Abnormal [facility] Arlington[facility], TOTAL, [id number] 08:00:00* Test Item Value Reference Range Interpretation Comments HCG, TOTAL, QN-Q (test code = 46764-8) 21751 mIU/mL H Verified by repe at analysis. Reference RangeNon or premenopausal ? ?<5Postmenopausal ? <10 Values from different assay methods may vary.The use of this assay to monitor or to diagnose patients with cancer or any condition unrelatedto has not been cleared or approved [facility] [place] FDA or the line supervisor of the assay. JUAN (test code = JUAN) PERFORMED BY [employer] [place]; [address] [place] [address]; EL KAN MD Lab Interpretation (test code = 37864-9) Abnormal [facility] [id number] 20:51:00* Test Item Value Reference Range Interpretation Comme nts POCT PREG (test code = 1605) Positive On board controls acceptable with C Line (test code = 3574) Yes POCT PREG LOT # (test code = 3575) POCT PREG TEST DATE ( test code = 357) [facility] URINALYSIS W/O SPECIFIC [id number] 15:08:00* Test Item Value Reference Range Interpretation Comme nts POCT PH U (test code = 3254) 5 mg/dl 5-8 POCT U LEUK EST (test code = 3263) Trace Negative - Negative POCT U NIT (test code = 3262) Positive Negative - Negati ve POCT U PROT (test code = 3259) 3+ Negative - Negat anthony POCT U GLU (test code = 3256) Negative Negative - Negati ve POCT U KETONE (test code = 3258) Negative Negative - Neg ative POCT U BLD (test code = 3257) Large Negative - Negati ve [facility] URINALYSIS W/O SPECIFIC [id number] 15:08:00* Test Item Value Reference Range Interpretation Comme nts POCT PH U (test code = 3254) 5 mg/dl 5-8 POCT U LEUK EST (test code = 3263) Trace Negative - Negative POCT U NIT (test code = 3262) Positive Negative - Negati ve POCT U PROT (test code = 3259) 3+ Negative - Negat anthony POCT U GLU (test code = 3256) Negative Negative - Negati ve POCT U KETONE (test code = 3258) Negative Negative - Neg ative POCT U BLD (test code = 3257) Large Negative - Negati ve [facility] Consult Notes Date/Time Note Provider Source 2023-08-27 15:34:44 Associated Order(s): CONSULT PASTORAL CARE Test Development Engineer visited with the patient, her nurse, and family member per consult. Pastoral Care was introduced. Empathic and reflective listening, support were provided. The patient debriefed about her hospitalization. No further needs were mentioned at the time. They were thankful for the visit and support. Test Development Engineer remains available to provide pastoral care as needed. Leandra Zamora, [facility] Test Development Engineer II [facility] Department of Pastoral Care Office: [phone] Cee Zamora [facility] - Health History and Physical Notes Date/Time Note Provider Source 2023-08-27 10:15:35 TRIAGE/L&D HISTORY & PHYSICAL IDENTIFYING DATA Jose Portillo is 32 year old, /White, 19w1d, female with KIRK 01/20/2024, by Ultrasound. : 1990 Primary Care Physician: Supriya Maldonado CHIEF COMPLAINT Missed HISTORY OF PRESENT ILLNESS Jose Portillo is a 32 year old at 19w1d who presents for missed . Was seen in [facility] US for amniocentesis. US showed no FHT. Patient denies vaginal bleeding, denies leakage of fluid, denies contractions. Patient denies headache, denies nausea/vomiting, denies RUQ pain, denies visual abnormalities. PAST OBSTETRIC HISTORY OB History Para Term AB Living 4 2 2 1 2 SAB IAB Ectopic Multiple Live Births 1 0 2 # Outcome Date GA Lbr Arash/2nd Weight Sex Delivery Anes PTL Lv 4 Current 3 SAB 08/17/22 2 Term 10/26/14 39w0d 3515 g M SEC EPI N TORSTEN Complications: Hypertension affecting 1 Term 08/28/10 38w0d 3345 g M SEC EPI N TORSTEN PAST MEDICAL HISTORY Problem list: Patient Active Problem List Diagnosis Date Noted 19 weeks gestation of 08/27/2023 High-risk in second trimester 07/23/2023 14 weeks gestation of 07/23/2023 Previous section complicating 07/23/2023 Chronic hypertension affecting 07/23/2023 Operations: Past Surgical History: Procedure Laterality Date SECTION 2010 SECTION 2014 Past Medical History: Diagnosis Date Anemia ongoing, History of anemia 02/20/2015 Kidney disease 02/2015 kidney stones, Resolved Menstrual disorder resolved, no menses Tobacco use disorder 04/30/2017 CURRENT HEALTH STATUS Medications: Current Facility-Administered Medications Medication Dose Route Frequency Last Rate Last Admin amLODIPine (NORVASC) tablet 5 mg 5 mg Oral DAILY 5 mg at 08/27/23 1439 D5W-LR IV infusion 1,000 mL 1,000 mL IV Infusion TITRATE 125 mL/hr at 08/27/23 1106 1,000 mL at 08/27/23 1106 lactated ringers IV infusion 500 mL 500 mL IV Infusion PRN - SEE INSTRUCTIONS lactated ringers IV infusion 500 mL 500 mL IV Infusion PRN - SEE INSTRUCTIONS lidocaine 1% (PF) (XYLOCAINE) injection 0.3 mL 0.3 mL Infiltration PRN - SEE INSTRUCTIONS lidocaine 1% (XYLOCAINE) 10 mg/mL (1 %) injection 50 mL 50 mL Infiltration PRN - SEE INSTRUCTIONS oxytocin (PITOCIN) 50 Units in lactated ringers 500 mL IV Solution 50 Units IV Piggyback SEE-INSTRUCTIONS sodium citrate-citric acid (BICITRA) 500-334 mg/5 mL solution 30 mL 30 mL Oral PRE-PROCEDURE ONCE Facility-Administered Medications Ordered in Other Encounters Medication Dose Route Frequency Last Rate Last Admin lidocaine-epinephrine (XYLOCAINE W/EPINEPHRINE) 1.5 %-1:200,000 injection Epidural ONCE INTRA PROCEDURE 5 mL at 08/27/23 1350 ropivacaine 0.2 % (NAROPIN (PF)) epidural infusion Epidural CONTINUOUS PRN 12 mL/hr at 08/27/23 1357 12 mL/hr at 08/27/23 1357 Allergies and drug reactions: Patient has no known allergies. HOME MEDICATIONS Medications Prior to Admission Medication Sig Dispense Refill Last Dose amLODIPine 5 mg tablet Take 1 tablet by mouth in the morning. 30 tablet 0 metroNIDAZOLE 500 mg tablet Take 1 tablet by mouth every 12 (twelve) hours. 14 tablet 0 Blood Pressure Monitor Kit Use as directed 1 Kit 0 PNV no.95/ferrous fum/folic ac ( ORAL) Take by mouth. Taking SOCIAL HISTORY Tobacco History: Social History Tobacco Use Smoking Status Former Packs/day: 0.50 Years: 10.00 Additional pack years: 0.00 Total pack years: 5.00 Types: Cigarettes Start date: 09/01/2008 Quit date: 12/07/2021 Years since quittin.7 Smokeless Tobacco Never Drug History: Social History Substance and Sexual Activity Drug Use No Alcohol History: Social History Substance and Sexual Activity Alcohol Use Yes Comment: socially FAMILY HISTORY Family History Problem Relation Age of Onset Breast Cancer Maternal Grandmother Cancer Paternal Grandfather Breast Cancer Mother 43 No Significant Medical Problems Father Breast Cancer Sister 28 No Significant Medical Problems Brother Breast Cancer Maternal Aunt No Significant Medical Problems Maternal Uncle No Significant Medical Problems Paternal Aunt No Significant Medical Problems Paternal Uncle Cancer Maternal Grandfather Arthritis NoFHx Asthma NoFHx defects NoFHx Colon Cancer NoFHx Ovarian Cancer NoFHx Uterine Cancer NoFHx Depression NoFHx Diabetes NoFHx Genetic NoFHx Heart NoFHx High cholesterol NoFHx Hypertension NoFHx Mental retardation NoFHx Neurological NoFHx Osteoporosis NoFHx Psychiatry NoFHx REVIEW OF SYSTEMS General: negative Skin: negative HEENT: negative Neck: negative HEME: negative Resp: negative Cardio: negative GI: negative : negative Endo: negative Neuro: negative Back: negative RADHA: negative Psych: negative VITAL SIGNS BP: (133-159)/(82-101) Temp: [36.7 ?C (98 ?F)] Temp source: Axillary (08/26 1040) Pulse: [65-83] Resp: [17] SpO2: [98 %-100 %] Height: -- Weight: [65.7 kg (144 lb 12.8 oz)] BMI (calculated): [0] PHYSICAL EXAMINATIONS General: patient alert and in no acute distress HEENT: symmetric, negative for masses Lungs: unlabored breathing Cardiology: peripheral pulses intact and regular Abdomen: soft, non-tender, non-distended, no liver, spleen or abnormal masses palpated and Gravid Extremities: no clubbing, cyanosis, or edema Neuro: patient moving all extremities, no facial droop : C/T/H REVIEW OF LABORATORY, PATHOLOGY, AND RADIOLOGY DATA Lab results: Type & Screen Lab Results Component Value Date/Time IABORH A NEGATIVE 07/28/2023 07:48 AM IAT Negative 07/28/2023 07:48 AM Serologies Lab Results Component Value Date/Time VZVIGG Positive 07/28/2023 07:48 AM HIVMULTIPLEX Non-reactive 04/30/2017 09:50 AM RUBG Equivocal 07/28/2023 07:48 AM SYPIGG Non-reactive 07/12/2022 10:42 AM SYPIGG Nonreactive 02/20/2015 02:39 PM HBSAG Negative 08/27/2023 11:23 AM HBSAG 0.05 08/27/2023 11:23 AM Chlamydia Lab Results Component Value Date/Time VCAA Negative 07/23/2023 02:41 PM Group B Strep No results found for: "CGB" GTT No results found for: "GLUF", "JPZJ1CR", "GLU3H" CBC Lab Results Component Value Date/Time HGB 12.3 08/27/2023 11:23 AM HCT 34.6 (L) 08/27/2023 11:23 AM PLT 244 08/27/2023 11:23 AM Active Hospital Problems Diagnosis Date Noted 19 weeks gestation of 08/27/2023 Previous section complicating 07/23/2023 Chronic hypertension affecting 07/23/2023 High-risk in second trimester 07/23/2023 Resolved Hospital Problems No resolved problems to display. Present on Admission: Previous section complicating Chronic hypertension affecting High-risk in second trimester 19 weeks gestation of Placenta Accreta Screening Prior ? : Yes Prior Uterine Surgery?: No Placenta low lying/previa in current ? : No Ultrasound suspicion of PASD in current ?: No Screening outcome: A positive screening outcome indicates a history of prior delivery or prior uterine surgery, AND the presence of either a placenta low lying/previa or ultrasound suspicion of PASD in the current . Negative screening. ASSESSMENT AND PLAN Jose Portillo is a 32 year old at 19w1d by u(14) who presents for missed . Missed Elevated NIPT -NIPT showed increased risk of T21, s/p genetics -Went for amniocentesis today, US showed no FHT, confirmed with US faculty (see note) - Receiving PNC with Dr. Irvin - No fever, flu-like sx during ; no sick contacts - No trauma, drug use - SVE: C/T/H - [place]: quiescent - desires - Has not decided if she wants to hold baby, will decide at - Desires microarray; autopsy, placenta path - Desires epidural - Plan: Counseled patient on D&E for IOL. Desires IOL. Counseled patient on risk of uterine rupture with pitocin give two prior c-sections. Patient understood risks and desired to continue. Will place Dilapan and start HDP. CHTN -Started on amlodipine 5 mg 08/05 -Bps 130s-140s/90s-100s -No s/s PreE -Bps on admission mild ranging Prevx2 -No op notes -Pfannenstiel Antepartum course reviewed - 1 h none, sero negative, Requiovcal, VZVimmune, A negative/IAT negative, GBS unk, Pap NILM - H/H, plt: 12.9 / 36.8, 266 on 07/28 - Pvt Dr. Irvin Fetus - Presentation on admission: transverse - posterior placenta - Abormal anatomy scan D/w Dr. Harman Espinal MD Associated attestation - Ricardo Hammer MD - 08/27/2023 3:38 PM CDT Admitted for delivery, patient counseled extensively and desires medical induction despite increased risks of hemorrhage and infection. Mechanical dilators and high dose pitocin ordered. [facility] Procedure Notes Date/Time Note Provider Source 2023-08-28 17:02:01 Procedure(s): D&C AFTER DELIVERY Pre-Procedure Diagnose(s): Retained complete placenta Post-Procedure Diagnose(s): Retained complete placenta DILATION AND CURETTAGE PROCEDURE NOTE Date: 08/28/2023 Preoperative Diagnosis: Retained Placenta Postoperative Diagnosis: Retained Placenta Procedure: Sharp Dilation and Curettage Resident Surgeons: Darby Graf MD & Marline Stratton MD Faculty Surgeon: Isela Tilley MD Anesthesia: Epidural Specimens: Placenta Findings: Placental tissue, majority intact. About 200 cc clot evaluated behind placenta. Indication: This is a patient with retained placenta after delivery of missed so she was brought to the OR for D&C. The patient understood risks, benefits and alternatives to the procedure, and informed consent was signed for D&C. All questions were answered prior to the procedure. Narrative: The patient was taken to the operating room and placed under general anesthesia. The patient was positioned, prepped,and draped in the normal sterile fashion in the dorsal lithotomy position using Candy cane stirrups. Bladder was emptied with Red Rubber Catheter. Weighted speculum was placed into the posterior fornix and a curved Rowan was placed into the anterior fornix in order to visualize cervix. Ring forcep was placed on anterior lip of cervix. Ring forcep used to carefully remove placenta from the uterus. Large amount of placenta removed and specimen sent to pathology. Banjo curette was then introduced to the uterus under ultrasound guidance. Curette was swept over entire uterine cavity in multiple passes to obtain placental tissue, which was collected and sent to pathology. Sharp curette was then swept progressively over endometrial cavity until endometrial texture was gritty. Endometrial stripe noted to be thin on bedside ultrasound. Hemostasis noted after ring forcep was removed from cervix. All instruments removed form vagina. All sponge, lap counts were correct x2. 1000 mcg of rectal misoprostol placed. The patient tolerated the procedure well, was awakened and transferred to the recovery room. Condition of Patient after Surgery: Good Estimated Blood Loss: 400 cc Urine Output: 50 cc Complications: None Darby Graf MD Associated attestation - Cary Peacock MD - 08/28/2023 5:11 PM CDT Present and assisted with the extraction of the placenta and D&C, with an additional moderate amount of POC obtained, under ultrasound guidance the endometrial stripe appeared thin at the end of the procedure. Agree with the resident note [facility]OBSTETRICS [facility]EC[facility] 2023-08-27 13:57:58 Associated Order(s): Central Neuraxial Block Central Neuraxial Block Date/Time: 08/27/2023 1:58 PM Performed by: Isaac Russ DO Authorized by: Maya Payne MD Patient Location: OB Reason for Block: OB request, Patient request, Labor analgesia, Surgical anesthesia and Post-op pain management Staff: Anesthesiologist: Maya Payne MD Resident/ASSOCIATE DENTIST: Isaac Russ DO Performed by: resident/ASSOCIATE DENTIST Preanesthetic Checklist: patient identified, IV checked, risks and benefits explained, monitors and equipment checked, timeout performed, pre-op evaluation, site marked and anesthesia consent Procedure: Type of Neuraxial: Epidural Epidural Description: 1st attempt Sterility Prep cap, drape, gloves, hand hygiene and mask Patient Position: sitting Prep: Betadine and patient draped Monitoring: heart rate, continuous pulse ox, heart rate / toco and NIBP Location: lumbar (1-5) Lumbar: L3-L4 Approach: midline Technique: JESSENIA air and catheter Guidance with: landmark technique} Epidural/Spinal [place] and/or Catheter: Epidural/Spinal Kit: BBraun Needle Type: Tuohy Needle Gauge: 17 G Needle Length: 3.5 in (8.89 cm) Needle Insertion Depth: 4.5 Catheter Type: multiport Catheter Size: 19 G Catheter at Skin Depth: 9 Number of Attempts: 1 Test Dose: lidocaine 1.5% with epinephrine 1-to-200,000 Dose: 5 cc Catheter Securement Method: surgical tape, Tegaderm, clear occlusive dressing and liquid medical adhesive Assessment: Block Outcome: patient tolerated procedure well Procedure Assessment: patient tolerated procedure well with no complications Notes: Patient consented and positioned sitting upright with instructions given regarding positioning and maintaining a sterile field. Patient prepped and draped in sterile fashion. Epidural kit opened and medications prepared utilizing sterile protocol. JESSENIA to Saline was used midline at L3L4 interspace. JESSENIA was at 4.5 cm attempts x 1. Catheter threaded smoothly, taped at skin at 9 cm. Negative aspiration of blood or CSF x 3. Negative Test dose. Epidural catheter secured in place using tegederm and tape while maintaining insertion site sterility. Pumps settings are continuous 12cc/hr PCEA 4cc- 15 mins lockout. 5 ml bolus was given initially. Patient instructed to lay back down on back and given instructions on SACK KEEPER functionality. Fall precautions provided, patient vocalized understanding and all questions answered. AN-ANESTHESIOLOGY [facility] 2023-08-27 13:31:04 Procedure(s): INSERT CERVICAL DILATOR Pre-Procedure Diagnose(s): Missed with demise before 20 completed weeks of gestation Post-Procedure Diagnose(s): Missed with demise before 20 completed weeks of gestation Images from the original note were not included. Jose Portillo is a 32 year old female 19w1d Diapan insertion: Insertion date and time: 08/27/23 1330 3 x dilapan and 2 gauze placed in the normal sterile fashion. Ring forceps was used to grasp cervix. Dilapan was inserted in sterile fashion with speculum visualization. Please use the table below for: SVE c/th/h CERVIX: Consistency : stiff; Position: posterior, Station: -3 Score 0 1 2 3 Dilation (cm) 0 cm 1-2 cm 3-4 cm >5 cm Effacement 0 - 30 % 40 - 50 % 60 - 70 % > 80 % Consistency of the cervix Stiff Moderately soft Very soft Position of the cervix Posterior Median Anterior Station -3 -2 -1 to 0 +1, +2 Deneen Rojas MD OG-OBSTETRICS & GYNECOLOGY [facility] Notes Date/Time Note Provider Source 2024-03-18 15:00:00 Images from the original note were not included. Venipuncture collection performed by clean technique on the right anticubitus. Total of 1 attempts were made. Slight pressure and a bandage/dressing were applied to the site(s). The patient experienced no complications. The following specimens were processed according to instructions and sent to [facility] laboratories per lab order on 03/18/2024 : LT BLUE SST 2 RST RED 1 LAV PPT DK GREEN (LiHep) DK GREEN (SodH) CASTLE DK BLUE (K2) DK BLUE (S) ACD Blood Culture NIPT/NTD T [facility] 2023-09-24 15:04:58 Chart reviewed. Labs ordered for upcoming Nephrology appointment per guidelines. [employer] message and/or letter sent to patient as an appointment reminder. T [facility] 2023-09-05 12:50:27 Refilled sent in to pharmacy on file per Dr. Irvin pt to follow-up at [facility] scheduled 09/17/23. Patient notified. Ramon Hazel RN 09/05/2023 12:51 PM T [facility] 2023-09-05 08:45:00 Addended by: RAMON HAZEL on: 09/05/2023 12:51 PM Modules accepted: Orders [facility] 2023-08-29 12:27:43 Problem: Grieving Goal: Able to express feelings of grief 08/29/2023 1227 by Maureen Connell RN Outcome: Resolved 08/29/2023 0905 by Maureen Connell RN Outcome: Progressing as expected Problem: Discharge Planning - Goal: Adequate for discharge 08/29/2023 1227 by Maureen Connell RN Outcome: Resolved 08/29/2023 0905 by Maureen Connell RN Outcome: Progressing as expected Goal: Mood stable 08/29/2023 1227 by Maureen Connell RN Outcome: Resolved 08/29/2023 0905 by Maureen Connell RN Outcome: Progressing as expected Problem: Falls, Risk of Goal: Absence of falls 08/29/2023 1227 by Maureen Connell RN Outcome: Resolved 08/29/2023 0905 by Maureen Connell RN Outcome: Progressing as expected Problem: Pain Goal: Control of pain at or below patient's documented comfort goal 08/29/2023 1227 by Maureen Connell, MARIE Outcome: Resolved 08/29/2023 0905 by Maureen Connell RN Outcome: Progressing as expected Goal: Reduction in pain sensation 08/29/2023 1227 by Maureen Connell RN Outcome: Resolved 08/29/2023 0905 by Maureen Connell, MARIE Outcome: Progressing as expected [facility] 2023-08-29 09:05:28 Problem: Grieving Goal: Able to express feelings of grief Outcome: Progressing as expected Problem: Discharge Planning - Goal: Adequate for discharge Outcome: Progressing as expected Goal: Mood stable Outcome: Progressing as expected Problem: Falls, Risk of Goal: Absence of falls Outcome: Progressing as expected Problem: Pain Goal: Control of pain at or below patient's documented comfort goal Outcome: Progressing as expected Goal: Reduction in pain sensation Outcome: Progressing as expected [facility] 2023-08-29 04:27:36 Problem: Intrapartum process (including labor pain) Goal: Absence of or reduction of complications of labor Outcome: Resolved Goal: Able to cope with pain Outcome: Resolved Goal: Adequate to move to next level of care Outcome: Resolved Goal: Reduction in pain sensation Outcome: Resolved Problem: Grieving Goal: Able to express feelings of grief Outcome: Progressing as expected Problem: Discharge Planning - Goal: Adequate for discharge Outcome: Progressing as expected Goal: Mood stable Outcome: Progressing as expected Problem: Falls, Risk of Goal: Absence of falls Outcome: Progressing as expected Problem: Pain Goal: Control of pain at or below patient's documented comfort goal Outcome: Progressing as expected Goal: Reduction in pain sensation Outcome: Progressing as expected [facility] Doreen Segura RN [facility] 2023-08-28 22:23:14 Problem: Intrapartum process (including labor pain) Goal: Absence of or reduction of complications of labor Outcome: Resolved Goal: Able to cope with pain Outcome: Resolved Goal: Adequate to move to next level of care Outcome: Resolved Goal: Reduction in pain sensation Outcome: Resolved [facility] 2023-08-28 16:08:26 Patient: Jose Portillo Procedure Summary Date: 08/27/23 Room / Location: Anesthesia Start: 1344 Anesthesia Stop: 08/28/23 1608 Procedure: CENTRAL NEURAXIAL BLOCK Diagnosis: Scheduled Providers: Responsible Provider: Sahara Nickerson MD Anesthesia Type: Epidural ASA Status: 2 Anesthesia Type: Epidural Last vitals BP Temp Pulse Resp SpO2 There were no known notable events for this encounter. Anesthesia Post Evaluation Patient location during evaluation: bedside Patient participation: complete - patient participated Level of consciousness: awake and alert Pain management: adequate Cardiovascular status: acceptable Respiratory status: acceptable Hydration status: acceptable Comments: Retained placenta. Plan to go to OR for D&E. Epidural left in place for procedure. AN-ANESTHESIOLOGY ANESTHESIOLOGIST [facility] 2023-08-28 13:39:43 DELIVERY BY SPONTANEOUS VAGINAL DELIVERY Delivery Date: 08/28/2023 Delivery Time: 1:36 PM Delivery Summary The patient was admitted to the Labor & Delivery unit for missed at 19 weeks. Delivery Physician: Tonia Espinal MD OB Faculty: Isela Tilley MD Intrapartum Anesthesia/Analgesia: Epidural Mode of Delivery: Delivery of cotter fetus with cephalic presentation Fetus Rupture of membranes occurred artificially at bedside. Fetus was delivered. The umbilical cord was clamped, cut and the fetus was handed off the field to the circulating nurse Placenta Placenta unable to be dleivered after 200 mcg oral misoprostol. Decision made to go to OR for manual extraction/D&C Laceration Laceration Repair: none Fourth Stage EBL: 200 cc Complications: none Weight: pending 1 Minute 5 Minute 10 Minute Totals: 0 0 0 Associated attestation - Cary Peacock MD - 08/28/2023 5:10 PM CDT Present for the delivery and agree with the resident note [facility] 2023-08-28 09:58:05 Problem: Intrapartum process (including labor pain) Goal: Absence of or reduction of complications of labor Outcome: Progressing as expected Goal: Able to cope with pain Outcome: Progressing as expected Goal: Adequate to move to next level of care Outcome: Progressing as expected Goal: Reduction in pain sensation Outcome: Progressing as expected Problem: Grieving Goal: Able to express feelings of grief Outcome: Progressing as expected [facility] 2023-08-28 09:23:57 Pt and FOB with appropriate grief. Reviewed with family appropriate progression of bereavement over months and when to call the MD. Call the MD if the grief or depression prevents them from ADL and HMA, feelings of helplessness or hopelessness, feelings of abandonment/punishment by God or their higher being. Depression and PP depression handout at NH. Pt and FOB have chosen the name Piedad Conroy for their daughter. T Izabela Le RN [facility] 2023-08-27 19:52:23 Problem: Intrapartum process (including labor pain) Goal: Absence of or reduction of complications of labor Outcome: Progressing as expected Goal: Able to cope with pain Outcome: Progressing as expected Goal: Adequate to move to next level of care Outcome: Progressing as expected Goal: Reduction in pain sensation Outcome: Progressing as expected Problem: Grieving Goal: Able to express feelings of grief Outcome: Progressing as expected [facility] 2023-08-27 13:55:31 Name/ MRN / Age / Gender: Jose Portillo, [id number] 32 year old female BMI: Estimated body mass index is 25.65 kg/m? as calculated from the following: Height as of 08/05/23: 1.6 m (5' 3"). Weight as of this encounter: 65.7 kg (144 lb 12.8 oz). Allergies: Patient has no known allergies. Last Vitals: BP Readings from Last 1 Encounters: 08/27/23 (!) 147/92 Pulse Readings from Last 1 Encounters: 08/27/23 79 SpO2 Readings from Last 1 Encounters: 08/27/23 100% Date of Surgery: 08/27/2023 Surgeon: * No surgeons listed * Procedure: CENTRAL NEURAXIAL BLOCK OR Location: [place] [facility] OUT OF OR - OR LOCATION Anesthesia Preop Eval (physical exam) Anesthesia Preop: Chart Review and Ksli-qg-Afig NPO Status Verified Anesthesia History Anesthesia History Negative Previous Anesthetics/Airways Cardiovascular Comments: BP Readings from Last 4 Encounters: 08/27/23 : (!) 147/92 08/05/23 : 118/80 07/23/23 : (!) 145/100 06/13/23 : (!) 142/103 (+) Hypertension Pulmonary Negative Pulmonary ROS Neuro/Musculoskeletal Negative Neuro/Musculosketal ROS GI/Hepatic Negative GI/Hepatic ROS Hematology Negative Hematology ROS Comments: HGB (g/dL) Date Value 08/27/2023 12.3 08/27/23 1123 PLT 244 Renal Negative Renal ROS Comments: CREATININE (mg/dL) Date Value 07/28/2023 0.53 K (mmol/L) Date Value 07/28/2023 4.2 Skin Negative Skin ROS Endo/Other Negative Endo/Other ROS Comments: No results found for: "[id number]" 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 Missed Elevated NIPT -NIPT showed increased risk of T21, s/p genetics -Went for amniocentesis today, US showed no FHT, confirmed with US faculty (see noted) - Receiving PNC with Dr. Irvin - No fever, flu-like sx during ; no sick contacts - No trauma, drug use , - Desires microarray; autopsy - Plan: FB & pit (causes: growth restriction, abruption, chromosomal anomalies, infection, smoking, HTN, autoimmune disease, obesity, DM) CHTN -Started on amlodipine 5 mg 08/05 -Bps 130s-140s/90s-100s -No s/s PreE -Bps on admission mild ranging Prevx2 -No op notes -Pfannenstiel Antepartum course reviewed - 1 h none, sero negative, Requiovcal, VZVimmune, A negative/IAT negative, GBS unk, Pap NILM - H/H, plt: 12.9 / 36.8, 266 on 07/28 - Pvt Dr. Irvin Fetus - Presentation on admission: - posterior placenta - Abormal anatomy scan Pediatric Preoperative Medication Instructions Continue taking all prescribed medications except: LANCE inhibitors, ARBs, diuretics, all oral diabetes medications Anticoagulant Therapy: Defer to surgeons Insulin: Take 1/2 dose the night prior to surgery. Hold on DOS. Phentermine: Alert [facility] anesthesiologist SGLT2 Inhibitors: "gliflozins" to be held for 3 days prior to elective surgeries GLP1 Agonosit: stop 7 days prior to surgery MAC Cases: Continue taking LANCE inhibitors and ARBs ASA Classification ASA: 2 Labs: Chemistry 07/28/2023 CBC 08/27/2023 135 107 12 76 6.50 12.3 244 4.2 23 0.53 34.6 (L) eGFR: 127.8 Date: 07/28/2023 ANC: 4.42 Date: 08/27/2023 LFTs 07/28/2023 Coags AST: 16 AP: 38 Prot: 6.3 Ca: 8.9 PT: - Date: - ALT: 8 T Tobin: 0.3 Alb: 3.5 PTT: - Date: - PO4: - Date: - INR: - Date: - Cardiac Endocrine & other pBNP: - Date: - A1C: 4.8 Date: 07/28/2023 Trop I: - Date: - TSH: - Date: - CK: - Date: - FT4: - Date: - CKMB: - Date: - Lact: - Date: - Procal: - Date: - Respiratory -|-|-|-|- D-dimer: - ABG Date: - Date: - Current Medications: No outpatient medications have been marked as taking for the 08/27/23 encounter (Hospital Encounter). Previous Surgeries: Past Surgical History: Procedure Laterality Date SECTION 2010 SECTION 2014 Anesthesia Physical Exam General alert and oriented x 3 Neuro/Psych neurological Dental no notable dental hx Abdominal (+) gravid Airway Mallampati score:II TM distance:> 5 cm Neck ROM: full Mouth opening:normal Extremity Pulmonary pulmonary exam normal Other Cardiovascular cardiovascular exam normal Anesthesia Plan ASA Status: 2 Plan discussed during pre-op evaluation: General, Epidural, Spinal and CSE Anesthetic plan on DOS: Epidural Anesthesia plan discussed with: patient or technical support representative Post-Operative Analgesia: routine analgesia & antiemetics Recovery Plan: LDR Additional comments: I reviewed the preoperative history, medications, labs and pertinent studies and performed a focused physical exam preoperatively. I discussed the anesthetic plan with the patient and/or family, including the risks, benefits, and alternatives. I answered all questions and verified consent, and ID. The patient/family agrees with the plan and desires to proceed with the procedure. AN-ANESTHESIOLOGY ANESTHESIOLOGIST [facility] 2023-08-27 12:21:33 Problem: Intrapartum process (including labor pain) Goal: Absence of or reduction of complications of labor 08/27/2023 1221 by Jordan Bui RN Outcome: Progressing as expected 08/27/2023 1220 by Jordan Bui RN Outcome: Progressing as expected Goal: Able to cope with pain 08/27/2023 1221 by Jordan Bui RN Outcome: Progressing as expected 08/27/2023 1220 by Jordan Bui RN Outcome: Progressing as expected Goal: Adequate to move to next level of care 08/27/2023 1221 by Jordan Bui RN Outcome: Progressing as expected 08/27/2023 1220 by Jordan Bui RN Outcome: Progressing as expected Goal: Reduction in pain sensation 08/27/2023 1221 by Jordan Bui RN Outcome: Progressing as expected 08/27/2023 1220 by Jordan Bui RN Outcome: Progressing as expected T [facility] 2023-08-27 12:20:03 Problem: Intrapartum process (including labor pain) Goal: Absence of or reduction of complications of labor Outcome: Progressing as expected Goal: Able to cope with pain Outcome: Progressing as expected Goal: Adequate to move to next level of care Outcome: Progressing as expected Goal: Reduction in pain sensation Outcome: Progressing as expected T [facility] 2023-08-05 15:07:49 Name and verified. Pt wanted to see what they were going to do at telehealth visit. Advised that it is your initial and they will go over results and recommendations. Verbalized understanding. NATACHA JOHNSTON RN 08/05/2023 3:09 PM AR Johnston RN [facility] 2023-08-05 14:05:25 Copied from [facility] #[id number]. Topic: Clinical - Medical Advice >> Aug 05, 2023 2:[address] [facility] Team wrote: Patient called to ask [facility] with genetics Please contact pt at [phone] (home) AR Churchill [facility] 2023-08-05 13:30:10 Attempted to contact patient. No answer, left informing patient appointment on 08/21 is with [facility] and she should contact them. Phone number left on . Shaka Rico RN 08/05/2023 1:30 PM AR Rico RN [facility] 2023-08-05 13:08:56 Patient has some questions regarding her appointment on the . She is requesting a call back. AR Crook [facility] 2023-08-05 10:46:57 Patient has been scheduled. AR Parrish [facility] 2023-08-05 09:15:00 Images from the original note were not included. Venipuncture collection performed by clean technique on the left anticubitus. Total of 1 attempts were made. Slight pressure and a bandage/dressing were applied to the site(s). The patient experienced no complications. The following specimens were processed according to instructions and sent to [facility] laboratories per lab order on 08/05/2023 : LT BLUE SST 1 RED LAV PPT DK GREEN (LiHep) DK GREEN (SodH) CASTLE DK BLUE (K2) DK BLUE (S) ACD Blood Culture NIPT/NTD Patient has been identified by and was provided with cup, antiseptic towelette, and clean catch instructions. 2 urine specimen(s) sent. Unpreserved 1 Urine Culture 1 Aptima tube Other urine [facility] 2023-08-05 08:48:57 Jose Portillo is a 32 year old female Theresa from Dr. Irvin's office called to schedule appt with genetics Please contact pt at [phone] (home) [phone] (work) AR Churchill [facility] 2023-08-04 15:01:59 Images from the original note were not included. Melchor results received via fax. Spoke with patient, name and verified. Appointment scheduled with Dr. Irvin tomorrow 08/04/2023 to discuss results. Patient requested an early appointment. Will scan and upload a copy to [employer]. AR Moe MA [facility] 2023-07-28 07:30:00 Images from the original note were not included. Venipuncture collection performed by clean technique on the left anticubitus. Total of 1 attempts were made. Slight pressure and a bandage/dressing were applied to the site(s). The patient experienced no complications. The following specimens were processed according to instructions and sent to [facility] [employer] per lab order on 07/28/2023 : LT BLUE SST RED LAV PPT DK GREEN (LiHep) DK GREEN (SodH) CASTLE DK BLUE (K2) DK BLUE (S) ACD Blood Culture NIPT/NTD Pt unable to do uds and uc ll do in clinic Melchor collected also Patient has been identified by and was provided with cup, antiseptic towelette, and clean catch instructions. 1 urine specimen(s) sent. Unpreserved Urine Culture Aptima tube Other urine 24hr urine [facility] 2023-07-23 14:00:00 Age: [age] year old GA: 14w1d New OB Visit Jose Portillo is a 32 year old at 14w1d by Ist trimester scan presents for Initial OB visit today. She was seen in the ER on 06/13 for abdominal pain and had a scan which was normal. Denies vaginal bleeding, abdominal pain or cramps. She reports some nausea without vomiting. She is in a stable relationship and FOB is involved and supportive, she denies domestic violence/immediate partner violence. Sonogram confirmed an IUP Assessment/Plan High-risk in second trimester (primary encounter diagnosis) 14 weeks gestation of -Discussed do's and don'ts of , safe foods, safe medications. NOB folder given We discussed course, labs, aneuploidy and genetic carrier screening and ultrasounds. Expectations for weight gain this include 25-30 pounds. Exercise in discussed and encouraged. aneuploidy options were reviewed including NIPT: cFDNA test and 2nd trimester QUAD screen. The benefits and short falls of these screening tests were reviewed. Also discussed diagnostic tests: CVS vs amniocentesis. She opted for NIPT screening and [employer] genetic carrier screening Reviewed Zika virus precautions .Discussed about COVID-19/flu precautions. Social distancing, frequent hand washings, signs/symptoms for testing and to follow CDC recommendations discussed. We reviewed vaccinations in : RSV and Flu (both seasonal) and COVID and Tdap COVID restrictions and policies at [facility] are constantly changes. Currently, a COVID test has to be completed prior to delivery and she can have one HEALTHY support with her during her delivery. If you have not already received the COVID vaccine, it is recommended in to protect against severe disease/illness that is seen in women, including adverse outcome such as . Large scale studies in women, have not shown an increase in miscarriage rate or defects with the COVID vaccine. The vaccine also provides passive immunity for the unborn child. I discussed the call schedule and that I deliver here at [facility]. I discussed that I have two partners, Dr. Anderson and Dr. Cortez and that they may deliver her or take care of her during her . I discussed that at [facility] we do not have a NICU, and that high risk pregnancies or deliveries less than 36 weeks will be transferred to [place]. All questions were answered. NOB labs today precautions reviewed Encouraged to call if have any additional questions or concerns. Plan: POCT Urinalysis w/o Specific [place], [facility] or [place] Only - Rpr, Cbc with Diff, Gc & Chlamydia Amplified Assay, Hcv Antibody, Hepatitis B Surface Antigen, HIV 1/2 Ag-Ab with Reflex, Workup, Blood Bank, Rubella Screen IgG, Trichomonas Amplified Assay, Urine Culture, Urine Drug (Immunoassay) - Comprehensive Drug Screen, VZV Antibody Screen, Galv Only - Vaginal Pathogens by Nucleic Acid Testing, Comp. Metabolic Panel ([id number]), Creatinine U 24 Hr, Protein Quant U/24h, Glycosylated Hemoglobin (A1C), Alpha Fetoprotein-Maternal Ser, Blood Pressure Monitor Kit, Gc & Chlamydia Amplified Assay, Trichomonas Amplified Assay, Galv Only - Vaginal Pathogens by Nucleic Acid Testing, CONSULT MATERNAL MEDICINE ULTRASOUND Previous section complicating - Hx of 2 previous c-sections, for ERLTCS at 39 weeks - Patient wants a BTL during her section Plan: CONSULT MATERNAL MEDICINE ULTRASOUND Chronic hypertension affecting - Pregnancies complicated with HTN - Reports that her PCP has been monitoring her BP but hasn't started her meds because the reading fluctuating BP today elevated 140-145/100's. -Reviewed CTHN with and its associated risks. Symptoms of PreEclampsia reviewed - Baseline PIH labs ordered including 24hr Urine protein - Start LDA until delivery - Start home BP monitoring - will start antihypertensives if BP persistently elevated Plan: Comp. Metabolic Panel ([id number]), Creatinine U 24 Hr, Blood Pressure Monitor Kit, CONSULT MATERNAL MEDICINE ULTRASOUND Vaginal discharge during in second trimester C/o vaginal discharge with itching Plan: Gc & Chlamydia Amplified Assay, Trichomonas Amplified Assay, Galv Only - Vaginal Pathogens by Nucleic Acid Testing, Glycosylated Hemoglobin (A1C), Alpha Fetoprotein-Maternal Ser, Gc & Chlamydia Amplified Assay, Trichomonas Amplified Assay, Galv Only - Vaginal Pathogens by Nucleic Acid Testing Return to clinic in 4 weeks for ABNER Reviewed patient instructions and provided printed copy. Donna Irvin MD 07/23/2023 3:02 PM [facility] 2023-06-13 22:25:42 Awake, alert oriented X4, respiratory even and unlabored,skin w/d color appropriate for race, moves all ext well, pt encouraged to follow up with pcp and or return as needed Pt given printed and verbal discharge instructions regarding Suprapubic pain, at early stage , patient verbralized understanding and signature obtained, patient denies any other concerns. Advised to seek medical attention for new/prolonged/worsening of symptoms, No adverse reaction to meds given in ER noted upon discharge Pt ambulated to the lobby with steady gait AR Westfall RN [facility] 2023-06-13 20:25:02 called tech at 2015 AR Frey [facility] 2023-06-13 19:41:22 Pt c/o lower abdominal pain since 399 this AM. Denies N/V/D. Reports urinary urgency and frequency. Took Advil x2 at 0800. AR Mayberry RN [facility] 2023-06-13 19:38:00 [facility] Emergency Department Note Patient Name: Jose Portillo Date of : 1990 32 year old female Treatment Room: [place] [address]/[id number] Primary Care Physician: Supriya Maldonado Patient Escorted by: Self [9] Mode of Arrival: Personal means [1] EMS Treatment Prior to ED Arrival: LABEL STAMPER treatment: Medication (comment) LABEL STAMPER treatment comments: see triage note Travel and Exposure Screening: Symptoms Does patient have any of these symptoms?: (not recorded) Exposure Screening Has patient had contact with someone with a communicable disease in the last month?: (not recorded) Diseases exposed to:: (not recorded) Is Patient ?: (not recorded) Exposure Date: (not recorded) Chief Complaint: Chief Complaint Patient presents with Abdominal Pain History of Present Illness: This is a 32 year old female with 2 days of lower abdominal suprapubic cramping pain. It is localized, intermittent, mild moderate, and she is using Advil with some relief of symptoms. There is associated breast tenderness bilateral and this made patient concerned she might be . However, she states she is not sexually active. She has chronic thin vaginal discharge, not foul-smelling, not thick, and she is not concerned about STDs. She has urinary frequency, but no flank pain. No hematuria but does have history of kidney stones. She endorses stopping use of OCPs on 06/05/2023. Past Medical History/Immunizations: Past Medical History: Diagnosis Date Anemia ongoing, History of anemia 02/20/2015 Kidney disease 02/2015 kidney stones, Resolved Menstrual disorder resolved, no menses Tobacco use disorder 04/30/2017 Urinary incontinence 2014 Tetanus received in last 5 years: Unknown Allergies: No Known Allergies Past Social History: Tobacco Use Former; Cigarettes: 09/01/2008 - 12/07/2021; 0.50 packs/day for 10.00 years Smokeless Tobacco: Never used smokeless tobacco. Alcohol Use Yes; 0.0 standard drinks of alcohol per week; 0 Standard drinks or equivalent. Comments: socially Drug Use No. Sexual Activity Sexually active; Partners: Male; Control/Protection: Pill. Comments: last sexual intercourse 07/10/2022 Past Surgical History: Past Surgical History: Procedure Laterality Date SECTION 2011 SECTION 2014 Review of Systems: Review of Systems Constitutional: Negative for chills and fever. HENT: Negative for congestion. Respiratory: Negative for cough and shortness of breath. Cardiovascular: Negative for chest pain and leg swelling. Gastrointestinal: Positive for abdominal pain. Negative for nausea and vomiting. Genitourinary: Positive for frequency and pelvic pain. Negative for dysuria. Musculoskeletal: Negative for back pain. Skin: Negative for rash. Neurological: Negative for dizziness, weakness, numbness and headaches. Psychiatric/Behavioral: Negative for confusion. Physical Exam: ED Triage Vitals [06/13/230] Weight 61.7 kg (136 lb) Actual or estimated Estimated by patient/family report Height 1.6 m (5' 3") BP (!) 162/105 Pulse 69 Resp 16 Temp 37.4 ?C (99.3 ?F) Temp source Oral SpO2 100 % Measured on Room air Physical Exam Vitals and nursing note reviewed. Constitutional: General: She is not in acute distress. Appearance: Normal appearance. She is well-developed. She is not ill-appearing, toxic-appearing or diaphoretic. HENT: Nose: No congestion. Eyes: General: No scleral icterus. Conjunctiva/sclera: Conjunctivae normal. Cardiovascular: Rate and Rhythm: Normal rate and regular rhythm. Heart sounds: Normal heart sounds. No murmur heard. No friction rub. No gallop. Pulmonary: Effort: Pulmonary effort is normal. No respiratory distress. Breath sounds: Normal breath sounds. No stridor. No wheezing or rales. Abdominal: General: There is no distension. Palpations: There is no mass. Tenderness: There is abdominal tenderness. There is no guarding or rebound. Comments: Mild suprapubic tenderness. No focal tenderness to McBurney's point. No CVA tenderness. Musculoskeletal: Cervical back: Normal range of motion and neck supple. Skin: General: Skin is warm and dry. Capillary Refill: Capillary refill takes less than 2 seconds. Coloration: Skin is not jaundiced or pale. Findings: No erythema or rash. Neurological: General: No focal deficit present. Mental Status: She is alert and oriented to person, place, and time. Motor: No weakness. Gait: Gait normal. Psychiatric: Mood and Affect: Mood normal. Behavior: Behavior normal. Radiology: US FIRST TRIMESTER LESS THAN 14 WEEKS Final Result Ordering physician: ROJELIO DENNIS Clinical indication: Lower abdominal pain in Comparison: None Technique: First trimester obstetrical ultrasound Technical quality: Adequate Findings: The study was performed only with transabdominal technique. The patient reportedly declined transvaginal scanning. The uterus measures 12.0 x 6.3 x 7.9 cm. A single intrauterine gestational sac is present. A single yolk sac and a single pole are identified. cardiac activity is documented, with a heart rate of 169 bpm. A crown-rump length of 18.82 mm indicates an estimated gestational age of 8 weeks 3 days. No abnormalities of the sac are patent. The right ovary measures 3.5 x 2.8 x 3.7 cm and the left ovary 2.9 x 1.3 x 2.8 cm. Color Doppler demonstrates blood flow within both ovaries. No adnexal masses are seen. No free fluid is noted. IMPRESSION Impression: Single live intrauterine fetus of approximately 8 weeks 3 days. No acute abnormalities evident. RL: [id number] End of Report Lab Results: Lab Results URINALYSIS - Abnormal Result Value Ref Range APPEARANCE Clear Clear COLOR Yellow Yellow PH 6.0 4.8 - 8.0 SP GRAVITY 1.020 1.003 - 1.030 GLU U QUAL Negative Negative BLOOD Large (*) Negative KETONES Negative Negative PROTEIN 30 mg/dL (*) Negative UROBILIN 0.2 mg/dL 0-1.0 mg/dL BILIRUBIN Negative Negative NITRITE Negative Negative LEUK KEYANNA Negative Negative RBC/HPF 2 0 - 3 HPF WBC/HPF 2 0 - 5 HPF BACTERIA Negative Negative MUCOUS Slight (*) Negative LPF SQ EPITH 1 HPF POCT TEST - Normal POCT PREG Positive On board controls acceptable with C Line Yes POCT PREG LOT # [id number] POCT PREG TEST DATE 08/17/2024 TOTAL BETA HCG ASSAY BETA HCG 96,469.00 Non- female and male patients: <5 mIU/mL EKG: If EKG completed, see Procedure Note. Orders and Treatments: Orders Placed This Encounter Procedures US FIRST TRIMESTER LESS THAN 14 WEEKS POCT TEST URINALYSIS TOTAL BHCG (QUANTITATIVE) No orders of the defined types were placed in this encounter. First Provider Eval: ED Events Date/Time Event User Comments 06/13/231944 Medical Screening Begins ROJELIO DENNIS MD R -- 06/13/231944 First Provider Evaluation ROJELIO DENNIS MD R -- ED COURSE ED Course as of 06/13/232214Jun 13, 20232202 US with single live IUP at 8w3d. No hemorrhage, [place] [id number]. Will advise to start MVI and refer to OB for further care. Teaching done on return precautions, all questions answered. [RM] 2024 Last ABO is A negative. No vaginal bleeding. If hemorrhage identified on US, will need RhoGAM. [RM] 2002 UPT is positive. Will have to check labs and US. There is a possibility of ectopic with the use of OCPs. [RM] 1955 Seen and examined. Lower abdominal cramping pain last 2 days with breast tenderness bilateral. Feels she might be , but not reportedly sexually active. She does endorse discontinuing OCPs on 06/05, and I suspect she is having a return to her menstrual cycle. Using Advil with some relief of pain. No focal tenderness to McBurney's point, no concerning vaginal discharge. Mild urinary frequency present, no CVA tenderness. Obtain UA and UPT. BP elevated, possibly due to anxiety, will recheck. [RM] ED Course User Index [RM] Rojelio Dennis MD Diagnosis/Impression as of 06/13/232214 Suprapubic pain at early stage Procedures: Procedures MDM: Medical Decision Making Please see ED Course for MDM Amount and/or Complexity of Data Reviewed Labs: ordered. Radiology: ordered. Flowsheet Documentation: Scoring Tools: No data recorded Disposition/Condition: ED Disposition ED Disposition Disch - Home Condition Stable Comment -- Discharge Medications: Patient's Medications START taking these medications No medications on file CONTINUE taking these medications which have NOT CHANGED ESTARYLLA 0.25-35 MG-MCG PER TABLET TAKE 1 TABLET BY MOUTH EVERY DAY NO PLACEBO START taking Modified Medications as Prescribed No medications on file STOP taking these medications No medications on file Follow-up: Contact information for follow-up [facility] Specialty: Obstetrics & Gynecology [address] [place] [address], [address] [facility] [address] Electronically signed by: Rojelio Dennis MD 06/13/232214 [facility]
[2024-09-12] MEDS ORDERED: KETOROLAC 30 MG/ML INJ ONE (22:55)
[2024-09-12] MEDS ORDERED: NA CHLORIDE 0.9% 1,000 ML ONE (22:56)
[2024-09-12 23:45] LABS: Absolute Basophils 0.1 K/uL (0-0.5); Absolute Eosinophils 0.2 K/uL (0-0.5); Absolute Lymphocytes (CBC) 1.8 K/uL (0.7-4.9); Absolute Monocytes 0.6 K/uL (0.1-1.3); Absolute Neutrophil 6.4 K/uL (1.8-8.0); Basophils % 0.7 % (0-1.3); Eosinophils % 1.9 % (0-4.4); Hematocrit 38.7 % (36.0-45.0); Hemoglobin 13.5 g/dL (12.0-15.0); Lymphocytes % 19.7 % (15.3-44.8); MCV 85.7 fL (80-100); MPV 7.7 fL (7.6-11.3); Monocytes % 7.1 % (3.3-12.3); Neutrophils % 70.6 % (41.7-73.7); Nucleated Red Blood Cells % 0.1 % (0-0); Platelets 345 thou/uL (152-406); RBC Red Blood Cell Count 4.52 M/uL (3.86-4.86); Red Cell Distribution Width 13.5 % (12.1-15.2)
[2024-09-12 23:56] LABS: Specific Gravity 1.012 (1.005-1.030); Sqamous Epithelial <5 /HPF (None Seen); Urine Bacteria <20 /HPF (<20); Urine Bilirubin NEGATIVE (Negative); Urine Blood 2+ (Negative); Urine Clarity Clear (Clear); Urine Color Colorless (Yellow); Urine Culture Reflex Order NOT NEEDED; Urine Glucose NEGATIVE (Negative); Urine Ketones NEGATIVE (Negative); Urine Microscopic Reflex YN ORDER UMIC; Urine Nitrite NEGATIVE (Negative); Urine Protein 1+ (Negative); Urine Urobilinogen Normal (Normal); Urine WBC <5 /HPF (<5); Urine pH 7.5 (5.0-7.0)
[2024-09-12 23:58] LABS: Albumin 3.4 g/dL (3.4-5.0); Alkaline Phosphatase 53 U/L (45-117); Anion Gap 7.2 mEq/L (5.0-15.0); BUN Blood Urea Nitrogen 11 mg/dL (7-18); Bicarbonate 29 mEq/L (21-32); Globulin 3.3 g/dL (2.3-3.5); Glomerular Filtration Rate 117 ml/min (=/>90); Glucose Level 102 mg/dL (74-106); Lipase 63 U/L (13-75); Potassium 3.2 mEq/L (3.5-5.1); Protein, Total 6.7 g/dL (6.4-8.2); Sodium Level 139 mEq/L (136-145)
[2024-09-12 23:59] LABS: ALT/SGPT < 14 U/L (13-56); AST/SGOT < 10 U/L (15-37); Bilirubin Total < 0.2 mg/dL (0.2-1.0)
[2024-09-13] MEDS ORDERED: POTASSIUM 25 MEQ EFFERV TAB ONE (01:37)
[2024-09-13] MEDS ORDERED: CEFTRIAXONE 1000 MG/VIAL ONE (02:11)
--- NOTE | 2024-09-13 02:11 | ER ---
Nurse's Notes [facility] Name: Leda Le Age: 33 yrs Sex: Female : 1990 Arrival Date: 09/12/2024 Time: 22:24 Bed 6 Private MD: Diagnosis: Hypertensive heart disease without heart failure;Lower abdominal pain, unspecified;Encounter for screening for infections with a predominantly sexual mode of transmission;Other hemorrhoids Presentation: 09/12 22:44 Chief complaint: Patient states: I was recently sexually active about two weeks ago. I jb4 now have RLQ pain and lower back pain with cloudy urine and I noticed a skin flap on my anus that became painful yesterday. I want an STD test done. Coronavirus screen: At this time, the client does not indicate any symptoms associated with coronavirus-19. Ebola Screen: No symptoms or risks identified at this time. Initial Sepsis Screen: Does the patient meet any 2 criteria? No. Patient's initial sepsis screen is negative. Does the patient have a suspected source of infection? No. Patient's initial sepsis screen is negative. Risk Assessment: Do you want to hurt yourself or someone else? Patient reports no desire to harm self or others. Onset of symptoms was September 12, 2024. Transition of care: patient was not received from another setting of care. 22:44 Method Of Arrival: Ambulatory 4 22:44 Acuity: HIRAL 3 jb4 HELP DESK MANAGER: 23:26 Not al5 Historical: - Allergies: 22:46 No Known Allergies; jb4 - PMHx: 22:46 Hypertensive disorder; Migraines; jb4 - PSHx: 22:46 D \T\ C; jb4 - Immunization history:: Adult Immunizations up to date. - Infectious Disease History:: Denies. - Social history:: Smoking status: Patient denies any tobacco usage or history of. Screenin:28 [facility] ED Fall Risk Assessment (Adult) History of falling in the last 3 months, al5 including since admission No falls in past 3 months (0 pts) Confusion or Disorientation No (0 pts) Intoxicated or Sedated No (0 pts) Impaired Gait No (0 pts) Mobility Assist Device Used No (0 pt) Altered Elimination No (0 pt) Score/Fall Risk Level 0 - 2 = Low Risk Oriented to surroundings, Maintained a safe environment, Hourly rounding (assess needs \T\ fall precautionary measures) done. Abuse screen: Denies threats or abuse. Denies injuries from another. Nutritional screening: No deficits noted. Tuberculosis screening: No symptoms or risk factors identified. Assessment: 23:26 General: Appears in no apparent distress. comfortable, Behavior is calm, cooperative. al5 Pain: Complains of pain in anus, right femoral area and right inguinal area Pain currently is 6 out of 10 on a pain scale. Neuro: Level of Consciousness is awake, alert, obeys commands, Oriented to person, place, time, situation. Cardiovascular: Capillary refill < 3 seconds Patient's skin is warm and dry. Respiratory: Airway is patent Respiratory effort is even, unlabored, Respiratory pattern is regular, symmetrical. GI: Abdomen is flat, non-distended, Reports lower abdominal pain. : Reports cloudy urine. EENT: No signs and/or symptoms were reported regarding the EENT system. Derm: Skin is intact, is healthy with good turgor, Skin is pink, warm \T\ dry. normal. Musculoskeletal: No signs and/or symptoms reported regarding the musculoskeletal system. 09/13 01:25 Reassessment: Patient appears in no apparent distress at this time. No changes from al5 previously documented assessment. Patient and/or family updated on plan of care and expected duration. Pain level reassessed. Patient is alert, oriented x 3, equal unlabored respirations, skin warm/dry/pink. 02:18 Reassessment: Patient appears in no apparent distress at this time. Patient and/or al5 family updated on plan of care and expected duration. Pain level reassessed. Patient is alert, oriented x 3, equal unlabored respirations, skin warm/dry/pink. Patient states feeling better. Vital Signs: 09/12 22:44 BP 162 / 119; Pulse 81; Resp 16; Temp 98.4(O); Pulse Ox 100% on R/A; Weight 59.87 kg jb4 (R); Height 5 ft. 2 in. ; Pain 6/10; 23:00 BP 175 / 129; Pulse 75; Resp 18; Pulse Ox 100% ; al5 23:30 BP 166 / 112; Pulse 62; Resp 17; Pulse Ox 100% ; al5 09/13 00:00 BP 151 / 103; Pulse 62; Resp 16; Pulse Ox 100% ; al5 01:00 BP 158 / 102; Pulse 62; Resp 16; Pulse Ox 98% ; al5 02:14 BP 158 / 104; Pulse 63; Resp 15; Pulse Ox 98% ; al5 09/12 22:44 Body Mass Index 24.14 (59.87 kg, 157.48 cm) jb4 09/12 22:44 Pain Scale: Adult jb4 ED Course: 09/12 22:26 Patient arrived in ED. jj6 22:36 Tono Amezquita PA is PHCP. cp 22:36 Tono Johns MD is Attending Physician. cp 22:46 Triage completed. jb4 22:46 Arm band placed on right wrist. jb4 22:53 Hyacinth Kiran, MARIE is Primary Nurse. al5 23:28 Patient has correct armband on for positive identification. Placed in gown. Bed in low al5 position. Call light in reach. Side rails up X2. Provided Education on: plan of care. 23:28 Inserted saline lock: 20 gauge in right antecubital area, using aseptic technique. al5 Blood collected. Flushed with 10 mL NS. 09/13 00:48 CT Abd/Pelvis - IV Contrast Only In Process Unspecified. EDMS 01:25 Assist provider with pelvic exam: Set up pelvic tray. Performed by Tono CLAIRE al5 Specimens sent to lab. Patient tolerated well. 02:25 IV discontinued, intact, bleeding controlled, No redness/swelling at site. Pressure al5 dressing applied. Administered Medications: 09/12 23:06 Drug: TORadol - Ketorolac IVP 15 mg IVP once Route: IVP; Site: right antecubital; al5 09/13 02:17 Follow up: Response: No adverse reaction; Pain is decreased al5 09/12 23:06 Drug: NS 0.9% IV 1000 ml IV at 1 bolus Per protocol; to be given as a bolus over 60 al5 minutes Route: IV; Rate: 1 bolus; Site: right antecubital; 09/13 02:18 Follow up: Response: No adverse reaction; IV Status: Completed infusion; IV Intake: al5 1000ml 01:44 Drug: Potassium PO Effervescent Tablet 50 mEq PO once; dissolve in 4 ounces of water or jb4 juice Route: PO; 02:17 Follow up: Response: No adverse reaction al5 02:16 Drug: AZITHromycin PO 1000 mg PO once Route: PO; br2 02:18 Follow up: Response: No adverse reaction; Medication administered at discharge. al5 02:17 Drug: Rocephin IV 1 grams IV at calculated rate once; Given slow IV push per pharmacy br2 instructions Route: IV; Rate: calculated rate; Site: right antecubital; 02:18 Follow up: Response: No adverse reaction; Medication administered at discharge.; IV al5 Status: Completed infusion; IV Intake: 10ml Medication: 02:25 VIS not applicable for this client. al5 Intake: 02:18 IV: 1000ml; Total: 1000ml. al5 02:18 IV: 10ml; Total: 1010ml. al5 Outcome: 02:10 Discharge ordered by MD. cp 02:25 Discharged to home ambulatory, al5 02:25 Condition: good 02:25 Discharge instructions given to patient, Instructed on discharge instructions, follow up and referral plans. medication usage, Demonstrated understanding of instructions, follow-up care, medications, Prescriptions given X 1, 02:27 Patient left the ED. al5 Signatures: Dispatcher [employer] EDMS Tono Amezquita PA PA cp Bryson, James, RN RN jb4 Cee [id number] Hyacinth Kiran RN RN al5 Tricia Williamson, MARIE RN br2 Corrections: (The following items were deleted from the chart) 09/12 23:29 23:28 Patient has correct armband on for positive identification. Bed in low position. al5 Call light in reach. Side rails up X2. al5 09/13 01:25 04 23:28 No provider procedures requiring assistance completed. al5 al5 09/13 02:25 02:14 BP 158 / 144; Pulse 63bpm; Resp 15bpm; Pulse Ox 98%; al5 al5
--- NOTE | 2024-09-13 02:11 | EDPHYS ---
Physician Documentation [facility] Name: Leda Le Age: 33 yrs Sex: Female : 1990 Arrival Date: 09/12/2024 Time: 22:24 Bed 6 Private MD: ED Physician Tono Johns HPI: 09/12 22:55 This 33 yrs old Female presents to ER via Ambulatory with complaints of cp Hemorrhoids. 22:55 The patient presents with abdominal pain right lower quadrant. cp 22:55 Onset: The symptoms/episode began/occurred today. Associated signs and symptoms: cp Pertinent positives: rectal pain with possible hemorrhoid, Pertinent negatives: blood in stools, constipation, diarrhea, fever, vaginal discharge, vomiting. Severity of pain: in the emergency department the pain is unchanged despite home interventions. 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 - Infectious Disease History:: Denies. - Social history:: Smoking status: Patient denies any tobacco usage or history of. ROS: 23:00 Constitutional: Negative for body aches, chills, fever, poor PO intake, cp 23:00 Cardiovascular: Negative for chest pain, palpitations, cp 23:00 Respiratory: Negative for cough, shortness of breath, wheezing, 23:00 Eyes: Negative for injury, pain, redness, and discharge, cp 23:00 ENT: Negative for drainage from ear(s), ear pain, sore throat, difficulty swallowing, difficulty handling secretions, 23:00 Abdomen/GI: Positive for abdominal pain, rectal pain, of the right lower quadrant, Negative for nausea, vomiting, and diarrhea, constipation, 23:00 : Negative for hematuria, vaginal bleeding, vaginal discharge, 23:00 Neuro: Negative for altered mental status, headache, syncope, weakness, 23:00 All other systems are negative, cp Exam: 23:05 Constitutional: The patient appears in no acute distress, alert, awake, comfortable, cp non-toxic, well developed, well nourished, 23:05 Head/Face: Normocephalic, atraumatic. cp 23:05 Eyes: Periorbital structures: appear normal, Conjunctiva: normal, no exudate, no injection, Sclera: no appreciated abnormality, Lids and lashes: appear normal, bilaterally, 23:05 ENT: External ear(s): are unremarkable, Nose: is normal, Mouth: Lips: moist, Oral mucosa: moist, Posterior pharynx: Airway: no evidence of obstruction, patent, 23:05 Chest/axilla: Inspection: normal, 23:05 Cardiovascular: Rate: normal, Rhythm: regular, 23:05 Respiratory: the patient does not display signs of respiratory distress, Respirations: normal, no use of accessory muscles, no retractions, labored breathing, is not present, Breath sounds: are clear throughout, no decreased breath sounds, no stridor, no wheezing, 23:05 Abdomen/GI: Inspection: abdomen appears normal, Bowel sounds: active, all quadrants, Palpation: soft, in all quadrants, mild abdominal tenderness, in the right lower quadrant, rebound tenderness, is not appreciated, involuntary guarding, is not appreciated, Rectal exam: hemorrhoid(s), external, with pain, with thrombosis, without bleeding, at about 5 o'clock position, 23:05 Back: pain, is absent, ROM is normal, 23:05 Neuro: Orientation: to person, place \T\ time. Mentation: is normal, 09/13 01:00 : Pelvic Exam: External exam: is normal, Speculum exam: no bleeding is noted, no cp cervicitis, os that is closed, bimanual exam reveals no cervical motion tenderness, no uterine tenderness, no adnexal tenderness on left, right adnexal tenderness, no adnexal mass on right, no adnexal mass on left, discharge, white, the nurse was present for the exam, Sexual behavior: the patient is sexually active, Vital Signs: 09/12 22:44 BP 162 / 119; Pulse 81; Resp 16; Temp 98.4(O); Pulse Ox 100% on R/A; Weight 59.87 kg jb4 (R); Height 5 ft. 2 in. ; Pain 6/10; 23:00 BP 175 / 129; Pulse 75; Resp 18; Pulse Ox 100% ; al5 23:30 BP 166 / 112; Pulse 62; Resp 17; Pulse Ox 100% ; al5 09/13 00:00 BP 151 / 103; Pulse 62; Resp 16; Pulse Ox 100% ; al5 01:00 BP 158 / 102; Pulse 62; Resp 16; Pulse Ox 98% ; al5 02:14 BP 158 / 104; Pulse 63; Resp 15; Pulse Ox 98% ; al5 09/12 22:44 Body Mass Index 24.14 (59.87 kg, 157.48 cm) jb4 09/12 22:44 Pain Scale: Adult jb4 MDM: 09/12 22:36 Medical Screening Exam initiated 09/13 02:10 Data reviewed: vital signs, nurses notes, lab test result(s), and as a result, I will cp discharge patient. 02:10 I considered the following discharge prescriptions or medication management in the emergency department Medications were administered in the Emergency Department. See MAR. Counseling: I had a detailed discussion with the patient and/or guardian regarding the historical points, exam findings, and any diagnostic results supporting the discharge/admit diagnosis, lab results. ED course: VSS. Patient would like to be discharged prior to results of CT abdomen/pelvis. Informed patient cannot r/o appendicitis until results of CT, but will attempt to contact patient at number of record in chart. 02:25 ED course: message left on voicemail to discuss results of CT. cp 02:40 ED course: Patient returned call to discuss results of CT abdomen/pelvis. RXs will be cp left at front office medical assistant for pickup. 09/12 22:50 Order name: CBC with Diff; Complete Time: 01:08 cp 09/12 22:50 Order name: CMP; Complete Time: 01:08 cp 09/13 01:08 Interpretation: Normal except: K 3.2; AST < 10; BILIT < 0.2; A/G 1.0. 09/12 22:50 Order name: Lipase; Complete Time: 01:08 cp 09/12 22:50 Order name: Test, Urine; Complete Time: 01:08 cp 09/12 22:50 Order name: Urinalysis w/ reflexes; Complete Time: 01:08 cp 09/13 01:08 Interpretation: Normal except: UBLD 2+; UPH 7.5; UPROT 1+; URBC 11-20. 09/13 01:11 Order name: Wet Prep; Complete Time: 02:20 cp 09/13 01:11 Order name: GC (Roe/Chl) Probe VAGINAL (Do not order if pt is under 13, order Culture cp instead) 09/12 22:50 Order name: CT Abd/Pelvis - IV Contrast Only cp 09/12 22:50 Order name: IV Saline Lock; Complete Time: 23:06 cp 09/12 22:50 Order name: Labs collected and sent; Complete Time: 23:06 cp 09/13 01:11 Order name: Pelvic Exam Setup; Complete Time: 02:17 cp Administered Medications: 09/12 23:06 Drug: TORadol - Ketorolac IVP 15 mg IVP once Route: IVP; Site: right antecubital; al5 09/13 02:17 Follow up: Response: No adverse reaction; Pain is decreased al5 09/12 23:06 Drug: NS 0.9% IV 1000 ml IV at 1 bolus Per protocol; to be given as a bolus over 60 al5 minutes Route: IV; Rate: 1 bolus; Site: right antecubital; 09/13 02:18 Follow up: Response: No adverse reaction; IV Status: Completed infusion; IV Intake: al5 1000ml 01:44 Drug: Potassium PO Effervescent Tablet 50 mEq PO once; dissolve in 4 ounces of water or jb4 juice Route: PO; 02:17 Follow up: Response: No adverse reaction al5 02:16 Drug: AZITHromycin PO 1000 mg PO once Route: PO; br2 02:18 Follow up: Response: No adverse reaction; Medication administered at discharge. al5 02:17 Drug: Rocephin IV 1 grams IV at calculated rate once; Given slow IV push per pharmacy br2 instructions Route: IV; Rate: calculated rate; Site: right antecubital; 02:18 Follow up: Response: No adverse reaction; Medication administered at discharge.; IV al5 Status: Completed infusion; IV Intake: 10ml Disposition: 04:52 Co-signature as Attending Physician, Tono Johns MD I agree with the assessment and gabriella plan of care. Disposition Summary: 09/13/24 02:10 Discharge Ordered Notes: Location: Home cp Problem: new cp Symptoms: have improved cp Condition: Stable cp Diagnosis - Hypertensive heart disease without heart failure cp - Lower abdominal pain, unspecified cp - Encounter for screening for infections with a predominantly sexual mode of cp transmission - Other hemorrhoids cp Followup: cp - With: Private Physician - When: 2 - 3 days - Reason: Worsening of condition Discharge Instructions: - Discharge Summary Sheet cp - Abdominal Pain, Adult cp - Hypertension, Adult cp - Health Maintenance, Female cp - Form - Blood Pressure Record Sheet cp - How to Take Your Blood Pressure cp - Preventing Sexually Transmitted Infections, Adult cp Forms: - Medication Reconciliation Form cp - Antibiotic Education cp - Prescription Opioid Use cp - Patient Portal Instructions cp - Leadership Thank You Letter cp Prescriptions: - Ibuprofen 600 mg Oral Tablet - take 1 tablet ORAL route every 6 hours As needed take with food; 30 tablet; cp Refills: 0, Product Selection Permitted - Cipro 500 mg Oral Tablet - take 1 tablet ORAL route every 12 hours for 7 days; 14 tablet; Refills: 0, cp Product Selection Permitted - Metronidazole 500 mg Oral tablet - take 1 tablet ORAL route every 8 hours; 21 tablet; Refills: 0, Product cp Selection Permitted - Anusol-HC 25 mg Rectal Suppository - insert 1 suppository RECTAL route every 12 hours As needed; 20 suppository; cp Refills: 0, Product Selection Permitted Signatures: Dispatcher [employer] EDMS Tono Johns MD MD cha Page, Corey PA PA cp Amrit Soto, RN RN jb4 Hyacinth Kiran RN RN al5 Tricia Williamson, MARIE RN br2 Corrections: (The following items were deleted from the chart) 09/12 22:50 22:50 CBC+H.LAB.BRZ ordered. EDMS EDMS 22:50 22:50 COMPREHENSIVE METABOLIC PANEL+C.LAB.BRZ ordered. EDMS EDMS 22:50 22:50 LIPASE+C.LAB.BRZ ordered. EDMS EDMS 22:50 22:50 Test, Urine+UC.LAB.BRZ ordered. EDMS EDMS 22:50 22:50 Urinalysis+U.LAB.BRZ ordered. EDMS EDMS
[2024-09-13] MEDS ORDERED: AZITHROMYCIN 250 MG TAB ONE (02:12)
--- NOTE | 2024-09-13 02:16 | RAD REPORT ---
EXAM DESCRIPTION: Abdomen Pelvis W Contrast RadLex: CT ABDOMEN PELVIS WITH IV CONTRAST CLINICAL HISTORY: 33 years Female; rlq abdomen pain; IV ONLY Bed Name: 6 TECHNIQUE: CT of the abdomen and pelvis [with] intravenous contrast. All CT scans at this facility use dose modulation, iterative reconstruction, and/or weight based dosi ng when appropriate to reduce radiation dose to as low as reasonably achievable. COMPARISON: None. FINDINGS: Exam limited by motion. Lower thorax: Lung bases are clear Abdomen: Stomach: Within normal limits Liver: No focal lesions. No intrahepatic ductal distention. Gallbladder: Nondistended Pancreas: Within normal limits Spleen: Within normal limits Right kidney: No hydronephrosis. No focal lesion. Left kidney: No hydronephrosis. Subcentimeter hypodensity, too small to characterize. Adrenal glands: Within normal limits Vascular structures: Within normal limits Nodes: No lymphadenopathy by size criteria Pelvis: Small bowel: No significant distention. Appendix: Within normal limits Colon: Mild wall thickening of the descending and sigmoid colon, could be secondary to underdistentio n. Peritoneum: No free intraperitoneal fluid or air. Bones: No acute bone findings. Bladder: Mild diffuse wall thickening. Reproductive organs: No acute findings. IMPRESSION: 1. Exam limited by motion. 2. Mild wall thickening of the descending and sigmoid colon, could be secondary to underdistention. Correlate with clinical presentation for colitis. 3. Mild diffuse bladder wall thickening, can be seen in setting of cystitis. Correlate with urinaly sis. Electronically signed by: Matthew Kaiser MD 09/13/2024 01:53 AM CDT TYG Due to temporary technical issues with the PACS/[employer] reporting system, reports are being johnathan d by the in-house radiologist without review as a courtesy to ensure prompt reporting the interpreting radiologist is fully responsible for the content of the report. Transcribed Date/Time: 09/13/2024 2:16 AM
[2024-09-13 02:32] VITALS: TEMP 98.4
[2024-09-13 02:38] VITALS: O2SAT 98
[2024-09-13 02:39] VITALS: BP 158/104
[2024-09-15 23:30] LABS: C.trachomatis RNA,TMA Not Detected (Not Detected); N.gonorrhoeae RNA,TMA Not Detected (Not Detected)
== END 2024-09-13 02:27 | disposition home or self-care (01) ==
LOC: ER 22:24
DX: K64.8 Other hemorrhoids (principal); R10.31 Right lower quadrant pain; I11.9 Hypertensive heart disease without heart failure; Z11.3 Encounter for screening for infections with a predominantly sexual mode of transmission; I10 Essential (primary) hypertension
CPT/HCPCS: 96361; 85025; 81001; 36415; 81025; 87210; 83690; 80053; 87590; 87490; 74177; 96375; 96374; 99284; Q9967; J7030; J0696